=== PATIENT | female | born 1955 | race Caucasian/White ===

== ENCOUNTER 2019-04-02 20:29 | Observation (INO) | payer OTHER ==
[2019-04-02] MEDS ORDERED: MORPHINE SULFATE 4 MG INJ IV ONE ×2 (20:40→23:53)
[2019-04-02] MEDS ORDERED: Zofran 4 MG/2 ML VIAL IV ONE (20:40)
[2019-04-02] MEDS ORDERED: Sodium Chloride 0.9% 1000 ML 1,000 ML IV STA (20:40)
--- NOTE | 2019-04-02 20:44 | ERPHSYRPT ---
- History of Present Illness Time Seen by Provider: 04/02/19 20:41 Historian: patient Exam Limitations: no limitations Physician History: 63-year-old white female with history of degenerative disc disease, arthritis Arrives with periumbilical abdominal pain nausea vomiting symptoms since this morning. Past medical history includes degenerative disc disease, arthritis past surgical history includes ear surgery and hysterectomy Social history patient denies tobacco alcohol or illicit drug use Timing/Duration: today Activities at Onset: none Quality: aching, cramping Abdominal Pain Onset Location: periumbilical Pain Radiation: no radiation Severity of Pain-Max: moderate Severity of Pain-Current: moderate Modifying Factors: Improves With: nothing Associated Symptoms: nausea, vomiting, No back, No chest pain, No diaphoresis, No diarrhea, No fever/chills, No fatigue, No headache, No heartburn, No loss of appetite, No neck pain, No rash, No shortness of breath, No syncope Previous symptoms: no prior history Allergies/Adverse Reactions: No Known Drug Allergies Allergy (Verified 04/02/19 20:43) Home Medications: Duloxetine HCl 60 mg PO DAILY 04/02/19 [History] Gabapentin 300 mg PO TID 04/02/19 [History] Hx Influenza Vaccination/Date Given: (given fall 2010) - Review of Systems Constitutional: No Fever, No Chills Eyes: No Symptoms Ears, Nose, & Throat: No Symptoms Respiratory: No Cough, No Dyspnea Cardiac: No Chest Pain, No Edema, No Syncope Abdominal/Gastrointestinal: Abdominal Pain, Nausea, Vomiting, No Diarrhea, No Constipation, No Hematemesis, No Hematochezia, No Melena, No Dysphagia, No Appetite Changes Genitourinary Symptoms: No Dysuria Musculoskeletal: No Back Pain, No Neck Pain Skin: No Rash Neurological: No Dizziness, No Focal Weakness, No Sensory Changes Psychological: No Symptoms Endocrine: No Symptoms All Other Systems: Reviewed and Negative - Past Medical History Pertinent Past Medical History: No Neurological History: No Pertinent History ENT History: No Pertinent History Cardiac History: No Pertinent History Respiratory History: No Pertinent History Endocrine Medical History: No Pertinent History Musculoskeletal History: Degenerative Disk Disease, Osteoarthritis GI Medical History: No Pertinent History History: No Pertinent History Psycho-Social History: No Pertinent History Female Reproductive Disorders: Other Other Medical History: HYSTERECTOMY, HX OF SURGERY FOR REPAIR OF EAR BONES - Past Surgical History Past Surgical History: Yes Neuro Surgical History: No Pertinent History Cardiac: No Pertinent History Respiratory: No Pertinent History Gastrointestinal: No Pertinent History Genitourinary: No Pertinent History Musculoskeletal: No Pertinent History Female Surgical History: Hysterectomy Other Surgical History: right ear surgery - Social History Drug Use: none - Nursing Vital Signs Nursing Vital Signs: Initial Vital Signs Pulse Rate 82 04/02/19 20:32 Respiratory Rate 18 04/02/19 20:32 Blood Pressure 155/90 04/02/19 20:32 O2 Sat by Pulse Oximetry 96 04/02/19 20:32 Pain Scale Pain Intensity 8 - Physical Exam General Appearance: moderate distress, alert Eye Exam: PERRL/EOMI, eyes nml inspection Ears, Nose, Throat Exam: normal ENT inspection, pharynx normal, moist mucous membranes Neck Exam: normal inspection, non-tender, supple, full range of motion Respiratory Exam: normal breath sounds, lungs clear, No respiratory distress Cardiovascular Exam: regular rate/rhythm, normal heart sounds, capillary refill <2 sec Gastrointestinal/Abdomen Exam: soft, normal bowel sounds, tenderness ( periumbilical tenderness) Back Exam: normal inspection, normal range of motion, No CVA tenderness, No vertebral tenderness Extremity Exam: normal inspection, normal range of motion, pelvis stable Neurologic Exam: alert, oriented x 3, cooperative, web marketing strategist II-XII nml as tested, normal mood/affect, nml cerebellar function, sensation nml, No motor deficits Skin Exam: normal color, warm, dry SpO2 Interpretation: normal (97%) - Course Nursing assessment & vital signs reviewed: Yes - CT Exams Abdomen/Pelvis CT Interpretation: Tele-radiologist Report (CT abdomen and pelvis with contrast : Impression 1 dilated small bowel with relative change in caliber a long segment of distal ileum with questionable mucosal thickening. Could represent enteritis and/or partial obstruction 2. There is also central mesenteric haziness which can be seen with mesenteric panniculitis. 3.. Umbilical fat containing hernia with stranding and minimal fluid.) Ordered Tests: Active Orders 24 hr Category Date Time Status EKG-ER Only STAT Care 04/02/19 20:40 Active IV Insertion STAT Care 04/02/19 20:40 Active ABDOMEN AND PELVIS W CONTRAST [CT] Stat Exams 04/02/19 21:14 Taken AMYLASE Stat Lab 04/02/19 20:48 Completed CBC W DIFF Stat Lab 04/02/19 20:48 Completed CMP Stat Lab 04/02/19 20:48 Completed CULTURE,URINE Stat Lab 04/02/19 23:18 Received LIPASE Stat Lab 04/02/19 20:48 Completed TROPONIN Q3H Lab 04/02/19 20:48 Completed TROPONIN Q3H Lab 04/02/19 23:45 Ordered TROPONIN Q3H Lab 04/03/19 02:45 Ordered TROPONIN Q3H Lab 04/03/19 05:45 Ordered TROPONIN Q3H Lab 04/03/19 08:45 Ordered UA W/RFX UR CULTURE Stat Lab 04/02/19 23:18 Completed Urine Triage Profile Stat Lab 04/02/19 22:23 Completed Medication Summary Discontinued Medications Generic Name Dose Route Start Last Admin Trade Name Freq PRN Reason Stop Dose Admin Sodium Chloride 1,000 mls @ 999 mls/hr 04/02/19 20:40 04/02/19 21:08 Sodium Chloride 0.9% 1000 Ml IV 04/02/19 21:40 999 mls/hr .Q1H1M STA Administration Sodium Chloride Confirm 04/02/19 20:54 Sodium Chloride 0.9% 1000 Ml Administered 04/02/19 20:55 Dose 1,000 mls @ ud .ROUTE .STK-MED ONE Morphine Sulfate 4 mg 04/02/19 20:40 04/02/19 21:07 Morphine Sulfate 4 Mg Inj IV 04/02/19 20:41 4 mg STAT ONE Administration Morphine Sulfate Confirm 04/02/19 20:54 Morphine Sulfate 4 Mg Inj Administered 04/02/19 20:55 Dose 4 mg .ROUTE .STK-MED ONE Morphine Sulfate 4 mg 04/02/19 23:53 Morphine Sulfate 4 Mg Inj IV 04/02/19 23:54 STAT ONE Ondansetron HCl 4 mg 04/02/19 20:40 04/02/19 21:08 Zofran 4 Mg/2 Ml Vial IV 04/02/19 20:41 4 mg STAT ONE Administration Ondansetron HCl Confirm 04/02/19 20:54 Zofran 4 Mg/2 Ml Vial Administered 04/02/19 20:55 Dose 4 mg .ROUTE .STK-MED ONE Lab/Rad Data: Laboratory Result Diagrams 04/02/19 20:48 04/02/19 20:48 Laboratory Results 04/02/19 04/02/19 04/02/19 Range/Units 23:18 22:23 20:48 WBC (4.0-10.5) K/mm3 RBC (4.1-5.4) M/mm3 Hgb (12.0-16.0) gm/dl Hct (35-47) % MCV (78-100) fl MCH (26-32) pg MCHC (32-36) g/dl RDW (11.5-14.0) % Plt Count (150-450) K/mm3 MPV (6-9.5) fl Gran % (36.0-66.0) % Eos # (Auto) (0-0.5) Absolute Lymphs (auto) (1.0-4.6) Absolute Monos (auto) (0.0-1.3) Lymphocytes % (24.0-44.0) % Monocytes % (0.0-12.0) % Eosinophils % (0.00-5.0) % Basophils % (0.0-0.4) % Absolute Granulocytes (1.4-6.9) Basophils # (0-0.4) Sodium (137-145) mmol/L Potassium (3.5-5.1) mmol/L Chloride (98-107) mmol/L Carbon Dioxide (22-30) mmol/L Anion Gap (5-15) MEQ/L BUN (7-17) mg/dL Creatinine (0.52-1.04) mg/dL Estimated GFR ML/MIN Glucose (74-106) mg/dL Calcium (8.4-10.2) mg/dL Total Bilirubin (0.2-1.3) mg/dL AST (14-36) U/L ALT (0-35) U/L Alkaline Phosphatase (38-126) U/L Troponin I < 0.012 (0.000-0.034) ng/mL Serum Total Protein (6.3-8.2) g/dL Albumin (3.5-5.0) g/dL Amylase (30-110) U/L Lipase (23-300) U/L Urine Color YELLOW (YELLOW) Urine Appearance CLEAR (CLEAR) Urine pH 6.0 (5-6) Ur Specific [place] 1.045 (1.005-1.025) Urine Protein NEGATIVE (Negative) Urine Ketones NEGATIVE (NEGATIVE) Urine Blood NEGATIVE (0-5) Abhinav/ul Urine Nitrite POSITIVE (NEGATIVE) Urine Bilirubin NEGATIVE (NEGATIVE) Urine Urobilinogen NORMAL (0-1) mg/dL Ur Leukocyte Esterase NEGATIVE (NEGATIVE) Urine WBC (Auto) 3-5 (0-5) /HPF Urine RBC (Auto) NONE SEEN (0-2) /HPF U Epithel Cells (Auto) NONE (FEW) /HPF Urine Bacteria (Auto) MODERATE (NEGATIVE) /HPF Urine Mucus (Auto) SLIGHT (NEGATIVE) /HPF Urine Culture Reflexed YES (NO) Urine Glucose NEGATIVE (NEGATIVE) mg/dL Urine Opiates Level POSITIVE (NEGATIVE) Ur Methadone NEGATIVE (NEGATIVE) Urine Barbiturates NEGATIVE (NEGATIVE) Ur Phencyclidine (PCP) NEGATIVE (NEGATIVE) Urine Amphetamine NEGATIVE (NEGATIVE) U Benzodiazepine Level NEGATIVE (NEGATIVE) Urine Cocaine NEGATIVE (NEGATIVE) Urine Marijuana (THC) NEGATIVE (NEGATIVE) 04/02/19 04/02/19 Range/Units 20:48 20:48 WBC 11.1 H (4.0-10.5) K/mm3 RBC 5.12 (4.1-5.4) M/mm3 Hgb 15.3 (12.0-16.0) gm/dl Hct 45.8 (35-47) % MCV 89.5 (78-100) fl MCH 29.9 (26-32) pg MCHC 33.4 (32-36) g/dl RDW 13.2 (11.5-14.0) % Plt Count 307 (150-450) K/mm3 MPV 10.0 H (6-9.5) fl Gran % 78.4 H (36.0-66.0) % Eos # (Auto) 0.15 (0-0.5) Absolute Lymphs (auto) 1.55 (1.0-4.6) Absolute Monos (auto) 0.67 (0.0-1.3) Lymphocytes % 13.9 L (24.0-44.0) % Monocytes % 6.0 (0.0-12.0) % Eosinophils % 1.3 (0.00-5.0) % Basophils % 0.4 (0.0-0.4) % Absolute Granulocytes 8.71 H (1.4-6.9) Basophils # 0.04 (0-0.4) Sodium 140 (137-145) mmol/L Potassium 4.1 (3.5-5.1) mmol/L Chloride 104 (98-107) mmol/L Carbon Dioxide 23 (22-30) mmol/L Anion Gap 16.8 H (5-15) MEQ/L BUN 14 (7-17) mg/dL Creatinine 0.59 (0.52-1.04) mg/dL Estimated GFR > 60.0 ML/MIN Glucose 130 H (74-106) mg/dL Calcium 9.7 (8.4-10.2) mg/dL Total Bilirubin 0.40 (0.2-1.3) mg/dL AST 24 (14-36) U/L ALT 40 H (0-35) U/L Alkaline Phosphatase 89 (38-126) U/L Troponin I (0.000-0.034) ng/mL Serum Total Protein 8.0 (6.3-8.2) g/dL Albumin 4.8 (3.5-5.0) g/dL Amylase 53 (30-110) U/L Lipase 92 (23-300) U/L Urine Color (YELLOW) Urine Appearance (CLEAR) Urine pH (5-6) Ur Specific [place] (1.005-1.025) Urine Protein (Negative) Urine Ketones (NEGATIVE) Urine Blood (0-5) Abhinav/ul Urine Nitrite (NEGATIVE) Urine Bilirubin (NEGATIVE) Urine Urobilinogen (0-1) mg/dL Ur Leukocyte Esterase (NEGATIVE) Urine WBC (Auto) (0-5) /HPF Urine RBC (Auto) (0-2) /HPF U Epithel Cells (Auto) (FEW) /HPF Urine Bacteria (Auto) (NEGATIVE) /HPF Urine Mucus (Auto) (NEGATIVE) /HPF Urine Culture Reflexed (NO) Urine Glucose (NEGATIVE) mg/dL Urine Opiates Level (NEGATIVE) Ur Methadone (NEGATIVE) Urine Barbiturates (NEGATIVE) Ur Phencyclidine (PCP) (NEGATIVE) Urine Amphetamine (NEGATIVE) U Benzodiazepine Level (NEGATIVE) Urine Cocaine (NEGATIVE) Urine Marijuana (THC) (NEGATIVE) - Progress Progress: improved Progress Note: 04/02/19 23:33 63-year-old white female arrives with complaint of periumbilical abdominal pain symptoms since this morning. Patient arrives in moderate distress she had vomiting on arrival Patient with stable vitals patient with white count 11.1 hemoglobin 15.3 hematocrit 45.8 platelets 307 Chemistry sodium 140 potassium 4.1 chloride 104 bicarbonate 23 BUN 14 creatinine 0.99 glucose 1:30 amylase and lipase are within normal limits patient with CT of the abdomen remarkable for 1. Dilated small bowel with relative change in caliber along a segment of the distal ileum with questionable mucosal thickening. Could represent enteritis and/or partial obstruction 2. Central mesenteric haziness which could be seen with mesenteric panniculitis 3. Periumbilical fat-containing hernia with stranding and minimal fluid Patient is given IV morphine IV Zofran IV normal saline she is better however she now states her pain is returning. Will discuss case with Dr. zavala who is catering convention services manager for Dr. Acuna. 04/02/19 23:58 The patient's case is discussed with Dr. Henderson, Will admit patient with the diagnosis of periumbilical abdominal pain. Will place patient on ice chips, provide IV fluids provide IV morphine Zofran. I have discussed the case with Dr. Shearer as well. Will obtain surgical consult. - Departure Departure Disposition: Observation Clinical Impression: Abdominal pain Qualifiers: Abdominal location: periumbilical Qualified Code(s): R10.33 - Periumbilical pain Vomiting Qualifiers: Vomiting type: unspecified Vomiting Intractability: non-intractable Nausea presence: with nausea Qualified Code(s): R11.2 - Nausea with vomiting, unspecified Condition: Fair Critical Care Time: No Referrals: STEPHANIE ACUNA [Primary Care Provider] -
[2019-04-02 20:51] LABS: BASOPHIL % 0.4 % (0.0-0.4); Basophil (Absolute #) 0.04 (0-0.4); Eosinophil % 1.3 % (0.00-5.0); Eosinophil (Absolute #) 0.15 (0-0.5); Granulocyte Absolute (ANC) 8.71 (1.4-6.9); Granulocytes % 78.4 % (36.0-66.0); Hematocrit 45.8 % (35-47); Hemoglobin 15.3 gm/dl (12.0-16.0); Lymphocyte (Absolute #) 1.55 (1.0-4.6); Lymphocytes % 13.9 % (24.0-44.0); Mean Cell Volume 89.5 fl (78-100); Mean Corpuscular Hemoglobin 29.9 pg (26-32); Mean Corpuscular Hgb Concent. 33.4 g/dl (32-36); Monocyte (Absolute #) 0.67 (0.0-1.3); Platelet Count 307 K/mm3 (150-450); Red Blood Count 5.12 M/mm3 (4.1-5.4); Red Cell Distribution Width 13.2 % (11.5-14.0); White Blood Count 11.1 K/mm3 (4.0-10.5)
[2019-04-02] MEDS ORDERED: Sodium Chloride 0.9% 1000 ML 1,000 ML ONE (20:54)
[2019-04-02] MEDS ORDERED: MORPHINE SULFATE 4 MG INJ ONE (20:54)
[2019-04-02] MEDS ORDERED: Zofran 4 MG/2 ML VIAL ONE (20:54)
[2019-04-02 21:03] LABS: ALBUMIN 4.8 g/dL (3.5-5.0); ALKALINE PHOSPHATASE 89 U/L (38-126); AMYLASE 53 U/L (30-110); ANION GAP 16.8 MEQ/L (5-15); BLOOD UREA NITROGEN 14 mg/dL (7-17); CHLORIDE 104 mmol/L (98-107); Calcium 9.7 mg/dL (8.4-10.2); Carbon Dioxide 23 mmol/L (22-30); Creatinine 1 0.59 mg/dL (0.52-1.04); Glucose 130 mg/dL (74-106); LIPASE 92 U/L (23-300); Potassium 4.1 mmol/L (3.5-5.1); SGOT/AST 24 U/L (14-36); SGPT/ALT 40 U/L (0-35); SODIUM 140 mmol/L (137-145)
[2019-04-02 23:17] LABS: Amphetamine,Urine NEGATIVE (NEGATIVE); Barbiturate,Urine NEGATIVE (NEGATIVE); Benzodiazepine,Urine NEGATIVE (NEGATIVE); Cocaine,Urine NEGATIVE (NEGATIVE); Methadone,Urine NEGATIVE (NEGATIVE); Opiate,Urine POSITIVE (NEGATIVE); PCP,Urine NEGATIVE (NEGATIVE); THC,Urine NEGATIVE (NEGATIVE)
[2019-04-02 23:23] LABS: Appearance CLEAR (CLEAR); Bilirubin NEGATIVE (NEGATIVE); Blood NEGATIVE Ery/ul (0-5); Glucose NEGATIVE (NEGATIVE); Ketones NEGATIVE (NEGATIVE); Leukocyte Esterase NEGATIVE (NEGATIVE); Nitrite POSITIVE (NEGATIVE); Protein,Urine Dip NEGATIVE (Negative); Specific Gravity 1.045 (1.005-1.025); Urobilinogen NORMAL mg/dL (0-1)
[2019-04-02 23:24] LABS: Bacteria MODERATE /HPF (NEGATIVE); Mucus SLIGHT /HPF (NEGATIVE); RBC NONE SEEN /HPF (0-2)
[2019-04-03] MEDS ORDERED: MORPHINE SULFATE 4 MG INJ ONE (00:03)
[2019-04-03] MEDS ORDERED: Zofran 4 MG/2 ML VIAL IV PRN (00:54)
[2019-04-03] MEDS ORDERED: MORPHINE SULFATE 4 MG INJ IV PRN (00:54)
[2019-04-03] MEDS ORDERED: Sodium Chloride 0.9% 1000 ML 1,000 ML IV SCH (00:54)
[2019-04-03 06:03] LABS: BASOPHIL % 0.2 % (0.0-0.4); Basophil (Absolute #) 0.02 (0-0.4); Eosinophil % 1.3 % (0.00-5.0); Eosinophil (Absolute #) 0.14 (0-0.5); Granulocyte Absolute (ANC) 8.82 (1.4-6.9); Granulocytes % 81.4 % (36.0-66.0); Hematocrit 42.6 % (35-47); Hemoglobin 13.8 gm/dl (12.0-16.0); Lymphocyte (Absolute #) 1.15 (1.0-4.6); Lymphocytes % 10.6 % (24.0-44.0); Mean Cell Volume 91.8 fl (78-100); Mean Corpuscular Hemoglobin 29.7 pg (26-32); Mean Corpuscular Hgb Concent. 32.4 g/dl (32-36); Mean Platelet Volume 9.9 fl (6-9.5); Monocytes % 6.5 % (0.0-12.0); Platelet Count 277 K/mm3 (150-450); Red Blood Count 4.64 M/mm3 (4.1-5.4); Red Cell Distribution Width 13.2 % (11.5-14.0); White Blood Count 10.8 K/mm3 (4.0-10.5)
[2019-04-03 06:24] LABS: ALBUMIN 4.2 g/dL (3.5-5.0); ALKALINE PHOSPHATASE 70 U/L (38-126); ANION GAP 13.7 MEQ/L (5-15); BLOOD UREA NITROGEN 12 mg/dL (7-17); CHLORIDE 106 mmol/L (98-107); Calcium 8.9 mg/dL (8.4-10.2); Carbon Dioxide 26 mmol/L (22-30); Glucose 124 mg/dL (74-106); SGOT/AST 20 U/L (14-36); SGPT/ALT 33 U/L (0-35); SODIUM 141 mmol/L (137-145); Total Protein 7.1 g/dL (6.3-8.2)
--- NOTE | 2019-04-03 07:57 | XRAY ---
Indication: Midabdomen pain. Nausea, vomiting, diarrhea. Multiple contiguous axial images obtained through the abdomen and pelvis using 80 cc Isovue 370 contrast only. Comparison: None Lung bases demonstrates mild bibasilar dependent atelectasis. No infiltrate or effusion. Heart is not enlarged. Small hiatal hernia. Noncontrasted stomach and bowel loops appear nonobstructed. Mild uniformly fluid distended small bowel loops with fluid leveling, ileus versus enteritis. Normal appendix. Descending and sigmoid diverticulosis. No free fluid/air. Midabdomen tiny mesenteric nodes with stranding favoring adenitis. Multiple gallstones, largest 1.8 cm. Bilateral parapelvic/cortical renal cysts. Previous hysterectomy. Remaining liver, pancreas, spleen, adrenal glands, ureters, and bladder appear unremarkable for noncontrast exam. Osseous structures intact with minimal degenerative changes throughout the spine. There are 2 moderate sized periumbilical fatty hernia with minimal stranding/fluid. Impression: 1. Fluid distended small bowel loops with fluid leveling, ileus versus enteritis. 2. Tiny midabdomen mesenteric nodes with stranding favoring mesenteric adenitis. 3. Cholelithiasis without cholecystitis. 4. Fatty periumbilical hernias. 5. Incidental small hiatal hernia, renal cysts, and colonic diverticulosis. Comment: Preliminary interpretation was made by [facility]. No critical discrepancy. CTDI 27.81
[2019-04-03 12:08] VITALS: BP 111/59; PULSE 85; O2SAT 94
[2019-04-03] MEDS ORDERED: ROCEPHIN 1 Gm-D5w 50 ml Bag** 1 G/50 ML IVPB IV ONE (13:50)
--- NOTE | 2019-04-03 14:16 | PCM.SSS ---
History of Present Illness - Chief Complaint Chief Complaint: Periumbilical abdominal pain History of Present Illness: is a 63 year old female.Who presented to ER yesterday with nausea vomiting and periumbilical abdominal pain but no fever. States it started earlier in the morning,had been to the movies the night before and ate alot of popcorn and pop. After Iv fluids overnight is feeling better ,was given bland diet this morning and denies abdominal pain or nausea following this meal. She still has her gallbladder and appendix. I was present for Surgery consult this morning with Dr Ervin Shearer who discussed doing a colonoscopy (see CT Abd re thickened illeus). Patient states she had a colonoscopy about 4 years ago and thinks she had "pockets",not sure about polyps. - Review of Systems Ears, Nose, & Throat: No Symptoms Respiratory: No Symptoms Cardiac: No Symptoms Abdominal/Gastrointestinal: Abdominal Pain, Nausea, Vomiting, Other Genitourinary Symptoms: No Symptoms Musculoskeletal: Arthralgias (chronic), Other Skin: No Symptoms Medications & Allergies Home Medications: Home Medication List Duloxetine HCl 60 mg PO DAILY 04/02/19 [History Confirmed 04/02/19] Gabapentin 300 mg PO TID 04/02/19 [History Confirmed 04/02/19] Cefdinir 300 mg PO BID 7 Days #14 capsule 04/03/19 [Rx] Allergies/Adverse Reactions: Allergies Allergy/AdvReac Type Severity Reaction Status Date / Time No Known Drug Allergies Allergy Verified 04/02/19 20:43 - Past Medical History Past Medical History: No Neurological History: No Pertinent History ENT History: No Pertinent History Cardiac History: No Pertinent History Respiratory History: No Pertinent History Endocrine Medical History: No Pertinent History Musculoskelatal History: Degenerative Disk Disease, Osteoarthritis GI Medical History: No Pertinent History History: No Pertinent History Pyscho-Social History: No Pertinent History Reproductive Disorders: Other Comment: HYSTERECTOMY, HX OF SURGERY FOR REPAIR OF EAR BONES - Female History Are you now?: No - Past Surgical History Past Surgical History: Yes Neuro Surgical History: No Pertinent History Cardiac History: No Pertinent History Respiratory Surgery: No Pertinent History GI Surgical History: No Pertinent History Genitourinary Surgical Hx: No Pertinent History Musculskeletal Surgical Hx: No Pertinent History Female Surgical History: Hysterectomy Other Surgical History: right ear surgery - Social History Smoking Status: Never smoker Exposure to second hand smoke: No Alcohol: Rarely Drug Use: none - Physical Exam Vital Signs: Vital Signs - 24 hr Temp Pulse Pulse Resp BP Pulse Ox 04/03/19 12:06 98.1 F 85 16 111/59 94 L 04/03/19 07:56 98.4 F 106 H 17 134/75 97 04/03/19 02:02 98.4 F 90 18 128/81 97 04/03/19 01:20 93 H 18 133/78 96 04/03/19 00:54 97 04/03/19 00:15 89 18 129/73 97 04/02/19 23:40 87 18 132/82 96 04/02/19 22:30 74 18 112/73 98 04/02/19 20:32 83 82 18 155/90 96 Oxygen-Last 24 hours O2 Percentage 2 Liters = 28% Oxygen Flowrate (L/min)-RT 2 General Appearance: no apparent distress Neurologic Exam: alert, oriented x 3, cooperative Respiratory Exam: normal breath sounds Cardiovascular Exam: regular rate/rhythm Gastrointestinal/Abdomen Exam: soft, tenderness (suprapubic. no guarding no rebound), other Pelvic Exam: not done, other (s/p hysterectomy) Rectal Exam: deferred Back Exam: other (no CVA tenderness) Extremity Exam: normal inspection, normal range of motion, pelvis stable Skin Exam: normal color, warm, dry Results - Labs Lab/Micro Results: Lab Results-Last 24 Hours 04/02/19 04/02/19 04/02/19 Range/Units 00:15 20:48 20:48 WBC 11.1 H (4.0-10.5) K/mm3 RBC 5.12 (4.1-5.4) M/mm3 Hgb 15.3 (12.0-16.0) gm/dl Hct 45.8 (35-47) % MCV 89.5 (78-100) fl MCH 29.9 (26-32) pg MCHC 33.4 (32-36) g/dl RDW 13.2 (11.5-14.0) % Plt Count 307 (150-450) K/mm3 MPV 10.0 H (6-9.5) fl Gran % 78.4 H (36.0-66.0) % Eos # (Auto) 0.15 (0-0.5) Absolute Lymphs (auto) 1.55 (1.0-4.6) Absolute Monos (auto) 0.67 (0.0-1.3) Lymphocytes % 13.9 L (24.0-44.0) % Monocytes % 6.0 (0.0-12.0) % Eosinophils % 1.3 (0.00-5.0) % Basophils % 0.4 (0.0-0.4) % Absolute Granulocytes 8.71 H (1.4-6.9) Basophils # 0.04 (0-0.4) Sodium 140 (137-145) mmol/L Potassium 4.1 (3.5-5.1) mmol/L Chloride 104 (98-107) mmol/L Carbon Dioxide 23 (22-30) mmol/L Anion Gap 16.8 H (5-15) MEQ/L BUN 14 (7-17) mg/dL Creatinine 0.59 (0.52-1.04) mg/dL Estimated GFR > 60.0 ML/MIN Glucose 130 H (74-106) mg/dL Calcium 9.7 (8.4-10.2) mg/dL Total Bilirubin 0.40 (0.2-1.3) mg/dL AST 24 (14-36) U/L ALT 40 H (0-35) U/L Alkaline Phosphatase 89 (38-126) U/L Troponin I < 0.012 (0.000-0.034) ng/mL Serum Total Protein 8.0 (6.3-8.2) g/dL Albumin 4.8 (3.5-5.0) g/dL Amylase 53 (30-110) U/L Lipase 92 (23-300) U/L Urine Color (YELLOW) Urine Appearance (CLEAR) Urine pH (5-6) Ur Specific [place] (1.005-1.025) Urine Protein (Negative) Urine Ketones (NEGATIVE) Urine Blood (0-5) Abhinav/ul Urine Nitrite (NEGATIVE) Urine Bilirubin (NEGATIVE) Urine Urobilinogen (0-1) mg/dL Ur Leukocyte Esterase (NEGATIVE) Urine WBC (Auto) (0-5) /HPF Urine RBC (Auto) (0-2) /HPF U Epithel Cells (Auto) (FEW) /HPF Urine Bacteria (Auto) (NEGATIVE) /HPF Urine Mucus (Auto) (NEGATIVE) /HPF Urine Culture Reflexed (NO) Urine Glucose (NEGATIVE) mg/dL Urine Opiates Level (NEGATIVE) Ur Methadone (NEGATIVE) Urine Barbiturates (NEGATIVE) Ur Phencyclidine (PCP) (NEGATIVE) Urine Amphetamine (NEGATIVE) U Benzodiazepine Level (NEGATIVE) Urine Cocaine (NEGATIVE) Urine Marijuana (THC) (NEGATIVE) 04/02/19 04/02/19 04/02/19 Range/Units 20:48 22:23 23:18 WBC (4.0-10.5) K/mm3 RBC (4.1-5.4) M/mm3 Hgb (12.0-16.0) gm/dl Hct (35-47) % MCV (78-100) fl MCH (26-32) pg MCHC (32-36) g/dl RDW (11.5-14.0) % Plt Count (150-450) K/mm3 MPV (6-9.5) fl Gran % (36.0-66.0) % Eos # (Auto) (0-0.5) Absolute Lymphs (auto) (1.0-4.6) Absolute Monos (auto) (0.0-1.3) Lymphocytes % (24.0-44.0) % Monocytes % (0.0-12.0) % Eosinophils % (0.00-5.0) % Basophils % (0.0-0.4) % Absolute Granulocytes (1.4-6.9) Basophils # (0-0.4) Sodium (137-145) mmol/L Potassium (3.5-5.1) mmol/L Chloride (98-107) mmol/L Carbon Dioxide (22-30) mmol/L Anion Gap (5-15) MEQ/L BUN (7-17) mg/dL Creatinine (0.52-1.04) mg/dL Estimated GFR ML/MIN Glucose (74-106) mg/dL Calcium (8.4-10.2) mg/dL Total Bilirubin (0.2-1.3) mg/dL AST (14-36) U/L ALT (0-35) U/L Alkaline Phosphatase (38-126) U/L Troponin I < 0.012 (0.000-0.034) ng/mL Serum Total Protein (6.3-8.2) g/dL Albumin (3.5-5.0) g/dL Amylase (30-110) U/L Lipase (23-300) U/L Urine Color YELLOW (YELLOW) Urine Appearance CLEAR (CLEAR) Urine pH 6.0 (5-6) Ur Specific [place] 1.045 (1.005-1.025) Urine Protein NEGATIVE (Negative) Urine Ketones NEGATIVE (NEGATIVE) Urine Blood NEGATIVE (0-5) Abhinav/ul Urine Nitrite POSITIVE (NEGATIVE) Urine Bilirubin NEGATIVE (NEGATIVE) Urine Urobilinogen NORMAL (0-1) mg/dL Ur Leukocyte Esterase NEGATIVE (NEGATIVE) Urine WBC (Auto) 3-5 (0-5) /HPF Urine RBC (Auto) NONE SEEN (0-2) /HPF U Epithel Cells (Auto) NONE (FEW) /HPF Urine Bacteria (Auto) MODERATE (NEGATIVE) /HPF Urine Mucus (Auto) SLIGHT (NEGATIVE) /HPF Urine Culture Reflexed YES (NO) Urine Glucose NEGATIVE (NEGATIVE) mg/dL Urine Opiates Level POSITIVE (NEGATIVE) Ur Methadone NEGATIVE (NEGATIVE) Urine Barbiturates NEGATIVE (NEGATIVE) Ur Phencyclidine (PCP) NEGATIVE (NEGATIVE) Urine Amphetamine NEGATIVE (NEGATIVE) U Benzodiazepine Level NEGATIVE (NEGATIVE) Urine Cocaine NEGATIVE (NEGATIVE) Urine Marijuana (THC) NEGATIVE (NEGATIVE) 04/03/19 04/03/19 04/03/19 Range/Units 02:44 05:20 05:20 WBC 10.8 H (4.0-10.5) K/mm3 RBC 4.64 (4.1-5.4) M/mm3 Hgb 13.8 (12.0-16.0) gm/dl Hct 42.6 (35-47) % MCV 91.8 (78-100) fl MCH 29.7 (26-32) pg MCHC 32.4 (32-36) g/dl RDW 13.2 (11.5-14.0) % Plt Count 277 (150-450) K/mm3 MPV 9.9 H (6-9.5) fl Gran % 81.4 H (36.0-66.0) % Eos # (Auto) 0.14 (0-0.5) Absolute Lymphs (auto) 1.15 (1.0-4.6) Absolute Monos (auto) 0.70 (0.0-1.3) Lymphocytes % 10.6 L (24.0-44.0) % Monocytes % 6.5 (0.0-12.0) % Eosinophils % 1.3 (0.00-5.0) % Basophils % 0.2 (0.0-0.4) % Absolute Granulocytes 8.82 H (1.4-6.9) Basophils # 0.02 (0-0.4) Sodium (137-145) mmol/L Potassium (3.5-5.1) mmol/L Chloride (98-107) mmol/L Carbon Dioxide (22-30) mmol/L Anion Gap (5-15) MEQ/L BUN (7-17) mg/dL Creatinine (0.52-1.04) mg/dL Estimated GFR ML/MIN Glucose (74-106) mg/dL Calcium (8.4-10.2) mg/dL Total Bilirubin (0.2-1.3) mg/dL AST (14-36) U/L ALT (0-35) U/L Alkaline Phosphatase (38-126) U/L Troponin I < 0.012 < 0.012 (0.000-0.034) ng/mL Serum Total Protein (6.3-8.2) g/dL Albumin (3.5-5.0) g/dL Amylase (30-110) U/L Lipase (23-300) U/L Urine Color (YELLOW) Urine Appearance (CLEAR) Urine pH (5-6) Ur Specific [place] (1.005-1.025) Urine Protein (Negative) Urine Ketones (NEGATIVE) Urine Blood (0-5) Abhinav/ul Urine Nitrite (NEGATIVE) Urine Bilirubin (NEGATIVE) Urine Urobilinogen (0-1) mg/dL Ur Leukocyte Esterase (NEGATIVE) Urine WBC (Auto) (0-5) /HPF Urine RBC (Auto) (0-2) /HPF U Epithel Cells (Auto) (FEW) /HPF Urine Bacteria (Auto) (NEGATIVE) /HPF Urine Mucus (Auto) (NEGATIVE) /HPF Urine Culture Reflexed (NO) Urine Glucose (NEGATIVE) mg/dL Urine Opiates Level (NEGATIVE) Ur Methadone (NEGATIVE) Urine Barbiturates (NEGATIVE) Ur Phencyclidine (PCP) (NEGATIVE) Urine Amphetamine (NEGATIVE) U Benzodiazepine Level (NEGATIVE) Urine Cocaine (NEGATIVE) Urine Marijuana (THC) (NEGATIVE) 05/05/19 05/05/19 Range/Units 05:20 08:40 WBC (4.0-10.5) K/mm3 RBC (4.1-5.4) M/mm3 Hgb (12.0-16.0) gm/dl Hct (35-47) % MCV (78-100) fl MCH (26-32) pg MCHC (32-36) g/dl RDW (11.5-14.0) % Plt Count (150-450) K/mm3 MPV (6-9.5) fl Gran % (36.0-66.0) % Eos # (Auto) (0-0.5) Absolute Lymphs (auto) (1.0-4.6) Absolute Monos (auto) (0.0-1.3) Lymphocytes % (24.0-44.0) % Monocytes % (0.0-12.0) % Eosinophils % (0.00-5.0) % Basophils % (0.0-0.4) % Absolute Granulocytes (1.4-6.9) Basophils # (0-0.4) Sodium 141 (137-145) mmol/L Potassium 4.0 (3.5-5.1) mmol/L Chloride 106 (98-107) mmol/L Carbon Dioxide 26 (22-30) mmol/L Anion Gap 13.7 (5-15) MEQ/L BUN 12 (7-17) mg/dL Creatinine 0.50 L (0.52-1.04) mg/dL Estimated GFR > 60.0 ML/MIN Glucose 124 H (74-106) mg/dL Calcium 8.9 (8.4-10.2) mg/dL Total Bilirubin 0.30 (0.2-1.3) mg/dL AST 20 (14-36) U/L ALT 33 (0-35) U/L Alkaline Phosphatase 70 (38-126) U/L Troponin I < 0.012 (0.000-0.034) ng/mL Serum Total Protein 7.1 (6.3-8.2) g/dL Albumin 4.2 (3.5-5.0) g/dL Amylase (30-110) U/L Lipase (23-300) U/L Urine Color (YELLOW) Urine Appearance (CLEAR) Urine pH (5-6) Ur Specific [place] (1.005-1.025) Urine Protein (Negative) Urine Ketones (NEGATIVE) Urine Blood (0-5) Abhinav/ul Urine Nitrite (NEGATIVE) Urine Bilirubin (NEGATIVE) Urine Urobilinogen (0-1) mg/dL Ur Leukocyte Esterase (NEGATIVE) Urine WBC (Auto) (0-5) /HPF Urine RBC (Auto) (0-2) /HPF U Epithel Cells (Auto) (FEW) /HPF Urine Bacteria (Auto) (NEGATIVE) /HPF Urine Mucus (Auto) (NEGATIVE) /HPF Urine Culture Reflexed (NO) Urine Glucose (NEGATIVE) mg/dL Urine Opiates Level (NEGATIVE) Ur Methadone (NEGATIVE) Urine Barbiturates (NEGATIVE) Ur Phencyclidine (PCP) (NEGATIVE) Urine Amphetamine (NEGATIVE) U Benzodiazepine Level (NEGATIVE) Urine Cocaine (NEGATIVE) Urine Marijuana (THC) (NEGATIVE) - Radiology Impressions Radiology Exams & Impressions: Radiology Procedures Category Date Time Status ABDOMEN AND PELVIS W CONTRAST [CT] Stat Exams 04/02/19 21:14 Completed - Other Procedures and Tests see Vrad report.- dialated small bowel,see complete report. Assessment/Plan (1) Abdominal pain Current Visit: Yes Status: Resolved Qualifiers: Abdominal location: periumbilical Qualified Code(s): R10.33 - Periumbilical pain Code(s): R10.9 - UNSPECIFIED ABDOMINAL PAIN (2) UTI (urinary tract infection) Current Visit: Yes Status: Acute Assessment & Plan: nitrate positive,culture urine is pending. Code(s): N39.0 - URINARY TRACT INFECTION, SITE NOT SPECIFIED Hospital Summary - Hospital Course Hospital Course: discussed in HPI - Vitals & Intake/Output Vital Signs: Vital Signs Temperature 98.1 F 04/03/19 12:06 Pulse Rate 85 04/03/19 12:06 Respiratory Rate 16 04/03/19 12:06 Blood Pressure 111/59 04/03/19 12:06 O2 Sat by Pulse Oximetry 94 L 04/03/19 12:06 Oxygen-Last Documented O2 Percentage 2 Liters = 28% Intake & Output: Intake & Output 04/01/19 04/02/19 04/03/19 04/04/19 11:59 11:59 11:59 11:59 Output Total 300 Balance -300 Weight 92.8 kg - Lab Result Diagrams: 04/03/19 05:20 04/03/19 05:20 Lab Results-Last 24 Hrs: Lab Results-Last 24 Hours 04/02/19 04/02/19 04/02/19 Range/Units 00:15 20:48 20:48 WBC 11.1 H (4.0-10.5) K/mm3 RBC 5.12 (4.1-5.4) M/mm3 Hgb 15.3 (12.0-16.0) gm/dl Hct 45.8 (35-47) % MCV 89.5 (78-100) fl MCH 29.9 (26-32) pg MCHC 33.4 (32-36) g/dl RDW 13.2 (11.5-14.0) % Plt Count 307 (150-450) K/mm3 MPV 10.0 H (6-9.5) fl Gran % 78.4 H (36.0-66.0) % Eos # (Auto) 0.15 (0-0.5) Absolute Lymphs (auto) 1.55 (1.0-4.6) Absolute Monos (auto) 0.67 (0.0-1.3) Lymphocytes % 13.9 L (24.0-44.0) % Monocytes % 6.0 (0.0-12.0) % Eosinophils % 1.3 (0.00-5.0) % Basophils % 0.4 (0.0-0.4) % Absolute Granulocytes 8.71 H (1.4-6.9) Basophils # 0.04 (0-0.4) Sodium 140 (137-145) mmol/L Potassium 4.1 (3.5-5.1) mmol/L Chloride 104 (98-107) mmol/L Carbon Dioxide 23 (22-30) mmol/L Anion Gap 16.8 H (5-15) MEQ/L BUN 14 (7-17) mg/dL Creatinine 0.59 (0.52-1.04) mg/dL Estimated GFR > 60.0 ML/MIN Glucose 130 H (74-106) mg/dL Calcium 9.7 (8.4-10.2) mg/dL Total Bilirubin 0.40 (0.2-1.3) mg/dL AST 24 (14-36) U/L ALT 40 H (0-35) U/L Alkaline Phosphatase 89 (38-126) U/L Troponin I < 0.012 (0.000-0.034) ng/mL Serum Total Protein 8.0 (6.3-8.2) g/dL Albumin 4.8 (3.5-5.0) g/dL Amylase 53 (30-110) U/L Lipase 92 (23-300) U/L Urine Color (YELLOW) Urine Appearance (CLEAR) Urine pH (5-6) Ur Specific [place] (1.005-1.025) Urine Protein (Negative) Urine Ketones (NEGATIVE) Urine Blood (0-5) Abhinav/ul Urine Nitrite (NEGATIVE) Urine Bilirubin (NEGATIVE) Urine Urobilinogen (0-1) mg/dL Ur Leukocyte Esterase (NEGATIVE) Urine WBC (Auto) (0-5) /HPF Urine RBC (Auto) (0-2) /HPF U Epithel Cells (Auto) (FEW) /HPF Urine Bacteria (Auto) (NEGATIVE) /HPF Urine Mucus (Auto) (NEGATIVE) /HPF Urine Culture Reflexed (NO) Urine Glucose (NEGATIVE) mg/dL Urine Opiates Level (NEGATIVE) Ur Methadone (NEGATIVE) Urine Barbiturates (NEGATIVE) Ur Phencyclidine (PCP) (NEGATIVE) Urine Amphetamine (NEGATIVE) U Benzodiazepine Level (NEGATIVE) Urine Cocaine (NEGATIVE) Urine Marijuana (THC) (NEGATIVE) 04/02/19 04/02/19 04/02/19 Range/Units 20:48 22:23 23:18 WBC (4.0-10.5) K/mm3 RBC (4.1-5.4) M/mm3 Hgb (12.0-16.0) gm/dl Hct (35-47) % MCV (78-100) fl MCH (26-32) pg MCHC (32-36) g/dl RDW (11.5-14.0) % Plt Count (150-450) K/mm3 MPV (6-9.5) fl Gran % (36.0-66.0) % Eos # (Auto) (0-0.5) Absolute Lymphs (auto) (1.0-4.6) Absolute Monos (auto) (0.0-1.3) Lymphocytes % (24.0-44.0) % Monocytes % (0.0-12.0) % Eosinophils % (0.00-5.0) % Basophils % (0.0-0.4) % Absolute Granulocytes (1.4-6.9) Basophils # (0-0.4) Sodium (137-145) mmol/L Potassium (3.5-5.1) mmol/L Chloride (98-107) mmol/L Carbon Dioxide (22-30) mmol/L Anion Gap (5-15) MEQ/L BUN (7-17) mg/dL Creatinine (0.52-1.04) mg/dL Estimated GFR ML/MIN Glucose (74-106) mg/dL Calcium (8.4-10.2) mg/dL Total Bilirubin (0.2-1.3) mg/dL AST (14-36) U/L ALT (0-35) U/L Alkaline Phosphatase (38-126) U/L Troponin I < 0.012 (0.000-0.034) ng/mL Serum Total Protein (6.3-8.2) g/dL Albumin (3.5-5.0) g/dL Amylase (30-110) U/L Lipase (23-300) U/L Urine Color YELLOW (YELLOW) Urine Appearance CLEAR (CLEAR) Urine pH 6.0 (5-6) Ur Specific [place] 1.045 (1.005-1.025) Urine Protein NEGATIVE (Negative) Urine Ketones NEGATIVE (NEGATIVE) Urine Blood NEGATIVE (0-5) Abhinav/ul Urine Nitrite POSITIVE (NEGATIVE) Urine Bilirubin NEGATIVE (NEGATIVE) Urine Urobilinogen NORMAL (0-1) mg/dL Ur Leukocyte Esterase NEGATIVE (NEGATIVE) Urine WBC (Auto) 3-5 (0-5) /HPF Urine RBC (Auto) NONE SEEN (0-2) /HPF U Epithel Cells (Auto) NONE (FEW) /HPF Urine Bacteria (Auto) MODERATE (NEGATIVE) /HPF Urine Mucus (Auto) SLIGHT (NEGATIVE) /HPF Urine Culture Reflexed YES (NO) Urine Glucose NEGATIVE (NEGATIVE) mg/dL Urine Opiates Level POSITIVE (NEGATIVE) Ur Methadone NEGATIVE (NEGATIVE) Urine Barbiturates NEGATIVE (NEGATIVE) Ur Phencyclidine (PCP) NEGATIVE (NEGATIVE) Urine Amphetamine NEGATIVE (NEGATIVE) U Benzodiazepine Level NEGATIVE (NEGATIVE) Urine Cocaine NEGATIVE (NEGATIVE) Urine Marijuana (THC) NEGATIVE (NEGATIVE) 04/03/19 04/03/19 04/03/19 Range/Units 02:44 05:20 05:20 WBC 10.8 H (4.0-10.5) K/mm3 RBC 4.64 (4.1-5.4) M/mm3 Hgb 13.8 (12.0-16.0) gm/dl Hct 42.6 (35-47) % MCV 91.8 (78-100) fl MCH 29.7 (26-32) pg MCHC 32.4 (32-36) g/dl RDW 13.2 (11.5-14.0) % Plt Count 277 (150-450) K/mm3 MPV 9.9 H (6-9.5) fl Gran % 81.4 H (36.0-66.0) % Eos # (Auto) 0.14 (0-0.5) Absolute Lymphs (auto) 1.15 (1.0-4.6) Absolute Monos (auto) 0.70 (0.0-1.3) Lymphocytes % 10.6 L (24.0-44.0) % Monocytes % 6.5 (0.0-12.0) % Eosinophils % 1.3 (0.00-5.0) % Basophils % 0.2 (0.0-0.4) % Absolute Granulocytes 8.82 H (1.4-6.9) Basophils # 0.02 (0-0.4) Sodium (137-145) mmol/L Potassium (3.5-5.1) mmol/L Chloride (98-107) mmol/L Carbon Dioxide (22-30) mmol/L Anion Gap (5-15) MEQ/L BUN (7-17) mg/dL Creatinine (0.52-1.04) mg/dL Estimated GFR ML/MIN Glucose (74-106) mg/dL Calcium (8.4-10.2) mg/dL Total Bilirubin (0.2-1.3) mg/dL AST (14-36) U/L ALT (0-35) U/L Alkaline Phosphatase (38-126) U/L Troponin I < 0.012 < 0.012 (0.000-0.034) ng/mL Serum Total Protein (6.3-8.2) g/dL Albumin (3.5-5.0) g/dL Amylase (30-110) U/L Lipase (23-300) U/L Urine Color (YELLOW) Urine Appearance (CLEAR) Urine pH (5-6) Ur Specific [place] (1.005-1.025) Urine Protein (Negative) Urine Ketones (NEGATIVE) Urine Blood (0-5) Abhinav/ul Urine Nitrite (NEGATIVE) Urine Bilirubin (NEGATIVE) Urine Urobilinogen (0-1) mg/dL Ur Leukocyte Esterase (NEGATIVE) Urine WBC (Auto) (0-5) /HPF Urine RBC (Auto) (0-2) /HPF U Epithel Cells (Auto) (FEW) /HPF Urine Bacteria (Auto) (NEGATIVE) /HPF Urine Mucus (Auto) (NEGATIVE) /HPF Urine Culture Reflexed (NO) Urine Glucose (NEGATIVE) mg/dL Urine Opiates Level (NEGATIVE) Ur Methadone (NEGATIVE) Urine Barbiturates (NEGATIVE) Ur Phencyclidine (PCP) (NEGATIVE) Urine Amphetamine (NEGATIVE) U Benzodiazepine Level (NEGATIVE) Urine Cocaine (NEGATIVE) Urine Marijuana (THC) (NEGATIVE) 04/03/19 04/03/19 Range/Units 05:20 08:40 WBC (4.0-10.5) K/mm3 RBC (4.1-5.4) M/mm3 Hgb (12.0-16.0) gm/dl Hct (35-47) % MCV (78-100) fl MCH (26-32) pg MCHC (32-36) g/dl RDW (11.5-14.0) % Plt Count (150-450) K/mm3 MPV (6-9.5) fl Gran % (36.0-66.0) % Eos # (Auto) (0-0.5) Absolute Lymphs (auto) (1.0-4.6) Absolute Monos (auto) (0.0-1.3) Lymphocytes % (24.0-44.0) % Monocytes % (0.0-12.0) % Eosinophils % (0.00-5.0) % Basophils % (0.0-0.4) % Absolute Granulocytes (1.4-6.9) Basophils # (0-0.4) Sodium 141 (137-145) mmol/L Potassium 4.0 (3.5-5.1) mmol/L Chloride 106 (98-107) mmol/L Carbon Dioxide 26 (22-30) mmol/L Anion Gap 13.7 (5-15) MEQ/L BUN 12 (7-17) mg/dL Creatinine 0.50 L (0.52-1.04) mg/dL Estimated GFR > 60.0 ML/MIN Glucose 124 H (74-106) mg/dL Calcium 8.9 (8.4-10.2) mg/dL Total Bilirubin 0.30 (0.2-1.3) mg/dL AST 20 (14-36) U/L ALT 33 (0-35) U/L Alkaline Phosphatase 70 (38-126) U/L Troponin I < 0.012 (0.000-0.034) ng/mL Serum Total Protein 7.1 (6.3-8.2) g/dL Albumin 4.2 (3.5-5.0) g/dL Amylase (30-110) U/L Lipase (23-300) U/L Urine Color (YELLOW) Urine Appearance (CLEAR) Urine pH (5-6) Ur Specific [place] (1.005-1.025) Urine Protein (Negative) Urine Ketones (NEGATIVE) Urine Blood (0-5) Abhianv/ul Urine Nitrite (NEGATIVE) Urine Bilirubin (NEGATIVE) Urine Urobilinogen (0-1) mg/dL Ur Leukocyte Esterase (NEGATIVE) Urine WBC (Auto) (0-5) /HPF Urine RBC (Auto) (0-2) /HPF U Epithel Cells (Auto) (FEW) /HPF Urine Bacteria (Auto) (NEGATIVE) /HPF Urine Mucus (Auto) (NEGATIVE) /HPF Urine Culture Reflexed (NO) Urine Glucose (NEGATIVE) mg/dL Urine Opiates Level (NEGATIVE) Ur Methadone (NEGATIVE) Urine Barbiturates (NEGATIVE) Ur Phencyclidine (PCP) (NEGATIVE) Urine Amphetamine (NEGATIVE) U Benzodiazepine Level (NEGATIVE) Urine Cocaine (NEGATIVE) Urine Marijuana (THC) (NEGATIVE) - Radiology Exams Ordered Rad Exams-Entire Visit: Radiology Procedures Category Date Time Status ABDOMEN AND PELVIS W CONTRAST [CT] Stat Exams 04/02/19 21:14 Completed - Discharge Disposition: Home, Self-Care Condition: Good Prescriptions: New Cefdinir 300 mg PO BID 7 Days #14 capsule Continue Gabapentin 300 mg PO TID Duloxetine HCl 60 mg PO DAILY Follow up with: STEPHANIE ACUNA [Primary Care Provider] - 1 Week
--- NOTE | 2019-04-03 14:46 | PCM.DCORD ---
- Discharge Disposition: Home, Self-Care Condition: Good Prescriptions: New Cefdinir 300 mg PO BID 7 Days #14 capsule Continue Gabapentin 300 mg PO TID Duloxetine HCl 60 mg PO DAILY Follow up with: STEPHANIE ACUNA [Primary Care Provider] - 1 Week
[2019-04-03] MEDS ORDERED: NEURONTIN 300 MG PO SCH (15:00)
[2019-04-03] MEDS ORDERED: Cymbalta 30 MG Capsule PO SCH (16:00)
== END 2019-04-03 15:50 | disposition home or self-care (01) ==
LOC: ED 20:29 → MED SURG 04-03 00:48
PROVIDERS: ADMIT Family Medicine; ATTEND Family Medicine
DX: R11.2 Nausea with vomiting, unspecified (principal); R10.33 Periumbilical pain; N39.0 Urinary tract infection, site not specified; Z79.899 Other long term (current) drug therapy
CPT/HCPCS: 36000; 36415; 74177; 80053; 80307; 81001; 82150; 83690; 84484; 85025; 87086; 93005; 93268; 96360; 96374; 96375; 96376; 99285; G0378; 87077; 87186; J0696; J2270; J2405

== ENCOUNTER 2019-11-25 16:52 | Emergency (ER) | payer MEDICAID, OTHER ==
[2019-11-25] MEDS ORDERED: BABY ASPIRIN 81 MG CHEW PO ONE (18:22)
[2019-11-25] MEDS ORDERED: SUBLIMAZE 100 MCG/2 ML IV ONE (18:22)
[2019-11-25] MEDS ORDERED: BABY ASPIRIN 81 MG CHEW ONE (18:26)
[2019-11-25] MEDS ORDERED: SUBLIMAZE 100 MCG/2 ML ONE (18:26)
[2019-11-25] MEDS ORDERED: Sodium Chloride 0.9% 1000 ML 1,000 ML ONE (18:26)
[2019-11-25] MEDS ORDERED: Sodium Chloride 0.9% 1000 ML 1,000 ML IV SCH (18:30)
[2019-11-25 19:16] LABS: Absolute Neutrophil Ct (ANC) 5.31 (1.4-6.9); BASOPHIL % 0.7 % (0.0-0.4); Basophil (Absolute #) 0.06 (0-0.4); Eosinophil (Absolute #) 0.36 (0-0.5); Hemoglobin 14.4 gm/dl (12.0-16.0); Lymphocytes % 26.9 % (24.0-44.0); Mean Cell Volume 88.5 fl (78-100); Mean Corpuscular Hgb Concent. 32.7 g/dl (32-36); Mean Platelet Volume 10.4 fl (6-9.5); Monocyte (Absolute #) 0.78 (0.0-1.3); Monocytes % 8.8 % (0.0-12.0); Neutrophil % 59.6 % (36.0-66.0); Platelet Count 282 K/mm3 (150-450); Red Blood Count 4.97 M/mm3 (4.1-5.4); Red Cell Distribution Width 13.4 % (11.5-14.0); White Blood Count 8.9 K/mm3 (4.0-10.5)
--- NOTE | 2019-11-25 19:16 | ERPHSYRPT ---
<GEOVANNY GRANADOS - Last Filed: 11/25/19 19:16> - History of Present Illness Time Seen by Provider: 11/25/19 17:00 Historian: patient Exam Limitations: no limitations Patient Subjective Stated Complaint: Pt states 'It all started last night, I have this pain in my chest, it gets worse when I walk. 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 I went to [facility] and they sent me here. I have been having a hard time breathing." Triage Nursing Assessment: Pt presented alert and oriented X 3, skin pwd pt presented in wheelchair, speaking rapidly in full complete sentecnes pt anxious. Physician History: chest pain hx of chondrodontritis Timing/Duration: yesterday Activities at Onset: none Quality: tightness Location: substernal Chest Pain Radiation: no radiation Severity of Pain-Max: moderate Severity of Pain-Current: moderate Modifying Factors: Improves With: movement Associated Symptoms: shortness of breath, diaphoresis Prior Chest Pain/Cardiac Workup: non-cardiac Nitro Today/Relief: no nitro taken today Aspirin Treatment Today: no aspirin today Allergies/Adverse Reactions: No Known Drug Allergies Allergy (Verified 04/02/19 20:43) Home Medications: Duloxetine HCl 60 mg PO DAILY 04/02/19 [History] Gabapentin 300 mg PO TID 04/02/19 [History] Hx Tetanus, Diphtheria Vaccination/Date Given: No Hx Influenza Vaccination/Date Given: No Hx Pneumococcal Vaccination/Date Given: No Immunizations Up to Date: Yes - Review of Systems Constitutional: No Fever, No Chills Eyes: No Symptoms Ears, Nose, & Throat: No Symptoms Respiratory: No Cough, No Dyspnea Cardiac: Chest Pain, No Edema, No Syncope Abdominal/Gastrointestinal: No Abdominal Pain, No Nausea, No Vomiting, No Diarrhea Genitourinary Symptoms: No Dysuria Musculoskeletal: No Back Pain, No Neck Pain Skin: No Rash Neurological: No Dizziness, No Focal Weakness, No Sensory Changes Psychological: No Symptoms Endocrine: No Symptoms All Other Systems: Reviewed and Negative - Past Medical History Pertinent Past Medical History: Yes Neurological History: No Pertinent History ENT History: No Pertinent History Cardiac History: No Pertinent History Respiratory History: No Pertinent History Endocrine Medical History: No Pertinent History Musculoskeletal History: Degenerative Disk Disease, Osteoarthritis GI Medical History: No Pertinent History History: No Pertinent History Psycho-Social History: Anxiety, Depression Female Reproductive Disorders: Other Other Medical History: HYSTERECTOMY, HX OF SURGERY FOR REPAIR OF EAR BONES - Past Surgical History Past Surgical History: Yes Neuro Surgical History: No Pertinent History Cardiac: No Pertinent History Respiratory: No Pertinent History Gastrointestinal: No Pertinent History Genitourinary: No Pertinent History Musculoskeletal: No Pertinent History Female Surgical History: Hysterectomy Other Surgical History: right ear surgery - Social History Smoking Status: Never smoker Exposure to second hand smoke: No Drug Use: none Patient Lives Alone: No - Female History Hx Now: No - Nursing Vital Signs Nursing Vital Signs: Initial Vital Signs Temperature 98.3 F 11/25/19 16:59 Pulse Rate 82 11/25/19 16:59 Respiratory Rate 24 11/25/19 16:59 Blood Pressure 160/85 11/25/19 16:59 O2 Sat by Pulse Oximetry 97 11/25/19 16:59 Pain Scale Pain Intensity 4 - Physical Exam General Appearance: no apparent distress, alert Eye Exam: PERRL/EOMI, eyes nml inspection Ears, Nose, Throat Exam: normal ENT inspection, moist mucous membranes Neck Exam: normal inspection, non-tender, supple, full range of motion Respiratory Exam: normal breath sounds, lungs clear, No respiratory distress Cardiovascular Exam: regular rate/rhythm, normal heart sounds Gastrointestinal/Abdomen Exam: soft, No tenderness, No mass Back Exam: normal inspection, No CVA tenderness, No vertebral tenderness Extremity Exam: normal inspection, normal range of motion Neurologic Exam: alert, oriented x 3, cooperative, normal mood/affect, sensation nml, No motor deficits Skin Exam: normal color, warm, dry SpO2: 97 - Course Nursing assessment & vital signs reviewed: Yes EKG Interpreted by Me: RATE (78), Sinus Rhythm, Non-specific ST Changes Ordered Tests: Active Orders 24 hr Category Date Time Status CHEST 1 VIEW (PORTABLE) Stat Exams 11/25/19 18:22 Taken CBC W DIFF Stat Lab 11/25/19 19:00 Completed CK-Creatinine Phosphokinase Stat Lab 11/25/19 19:00 Completed CMP Stat Lab 11/25/19 19:00 Completed D-DIMER QUANTITATIVE Stat Lab 11/25/19 19:00 Completed NT PRO BNP Stat Lab 11/25/19 19:00 Completed TROPONIN Q3H Lab 11/25/19 19:00 Completed TROPONIN Q3H Lab 11/25/19 21:30 Ordered TROPONIN Q3H Lab 11/26/19 00:30 Ordered TROPONIN Q3H Lab 11/26/19 03:30 Ordered TROPONIN Q3H Lab 11/26/19 06:30 Ordered Medication Summary Generic Name Dose Route Start Last Admin Trade Name Qasim PRN Reason Stop Dose Admin Sodium Chloride 1,000 mls @ 100 mls/hr 11/25/19 18:30 11/25/19 18:29 Sodium Chloride 0.9% 1000 Ml IV 12/25/19 18:29 100 mls/hr .Q10H MICHAEL Administration Discontinued Medications Generic Name Dose Route Start Last Admin Trade Name Qasim PRN Reason Stop Dose Admin Aspirin 324 mg 11/25/19 18:22 11/25/19 18:29 Baby Aspirin 81 Mg Chew PO 11/25/19 18:23 324 mg STAT ONE Administration Aspirin Confirm 11/25/19 18:26 Baby Aspirin 81 Mg Chew Administered 11/25/19 18:27 Dose 324 mg .ROUTE .STK-MED ONE Fentanyl Citrate 50 mcg 11/25/19 18:22 11/25/19 18:28 Sublimaze 100 Mcg/2 Ml IV 11/25/19 18:23 50 mcg STAT ONE Administration Fentanyl Citrate Confirm 11/25/19 18:26 Sublimaze 100 Mcg/2 Ml Administered 11/25/19 18:27 Dose 100 mcg .ROUTE .STK-MED ONE Lab/Rad Data: Laboratory Result Diagrams 11/25/19 19:00 11/25/19 19:00 Laboratory Results 11/25/19 11/25/19 11/25/19 Range/Units 19:00 19:00 19:00 WBC (4.0-10.5) K/mm3 RBC (4.1-5.4) M/mm3 Hgb (12.0-16.0) gm/dl Hct (35-47) % MCV (78-100) fl MCH (26-32) pg MCHC (32-36) g/dl RDW (11.5-14.0) % Plt Count (150-450) K/mm3 MPV (6-9.5) fl Gran % (36.0-66.0) % Eos # (Auto) (0-0.5) Absolute Lymphs (auto) (1.0-4.6) Absolute Monos (auto) (0.0-1.3) Lymphocytes % (24.0-44.0) % Monocytes % (0.0-12.0) % Eosinophils % (0.00-5.0) % Basophils % (0.0-0.4) % Absolute Granulocytes (1.4-6.9) Basophils # (0-0.4) D-Dimer 442 (215-500) ng/mL Sodium 137 (137-145) mmol/L Potassium 3.8 (3.5-5.1) mmol/L Chloride 105 (98-107) mmol/L Carbon Dioxide 26 (22-30) mmol/L Anion Gap 10.3 (5-15) MEQ/L BUN 19 H (7-17) mg/dL Creatinine 0.55 (0.52-1.04) mg/dL Estimated GFR > 60.0 ML/MIN Glucose 99 (74-106) mg/dL Calcium 9.4 (8.4-10.2) mg/dL Total Bilirubin 0.30 (0.2-1.3) mg/dL AST 25 (14-36) U/L ALT 36 H (0-35) U/L Alkaline Phosphatase 73 (38-126) U/L Creatine Kinase 46 (30-135) U/L Troponin I < 0.012 (0.000-0.034) ng/mL NT-Pro-B Natriuret Pep 56.0 (0-900) pg/mL Serum Total Protein 7.4 (6.3-8.2) g/dL Albumin 4.3 (3.5-5.0) g/dL 11/25/19 Range/Units 19:00 WBC 8.9 (4.0-10.5) K/mm3 RBC 4.97 (4.1-5.4) M/mm3 Hgb 14.4 (12.0-16.0) gm/dl Hct 44.0 (35-47) % MCV 88.5 (78-100) fl MCH 29.0 (26-32) pg MCHC 32.7 (32-36) g/dl RDW 13.4 (11.5-14.0) % Plt Count 282 (150-450) K/mm3 MPV 10.4 H (6-9.5) fl Gran % 59.6 (36.0-66.0) % Eos # (Auto) 0.36 (0-0.5) Absolute Lymphs (auto) 2.40 (1.0-4.6) Absolute Monos (auto) 0.78 (0.0-1.3) Lymphocytes % 26.9 (24.0-44.0) % Monocytes % 8.8 (0.0-12.0) % Eosinophils % 4.0 (0.00-5.0) % Basophils % 0.7 (0.0-0.4) % Absolute Granulocytes 5.31 (1.4-6.9) Basophils # 0.06 (0-0.4) D-Dimer (215-500) ng/mL Sodium (137-145) mmol/L Potassium (3.5-5.1) mmol/L Chloride (98-107) mmol/L Carbon Dioxide (22-30) mmol/L Anion Gap (5-15) MEQ/L BUN (7-17) mg/dL Creatinine (0.52-1.04) mg/dL Estimated GFR ML/MIN Glucose (74-106) mg/dL Calcium (8.4-10.2) mg/dL Total Bilirubin (0.2-1.3) mg/dL AST (14-36) U/L ALT (0-35) U/L Alkaline Phosphatase (38-126) U/L Creatine Kinase (30-135) U/L Troponin I (0.000-0.034) ng/mL NT-Pro-B Natriuret Pep (0-900) pg/mL Serum Total Protein (6.3-8.2) g/dL Albumin (3.5-5.0) g/dL - Progress Progress Note: 11/25/19 19:[address] otero - Departure Clinical Impression: Atypical chest pain Dyspnea Qualifiers: Dyspnea type: unspecified Qualified Code(s): R06.00 - Dyspnea, unspecified Condition: Stable Referrals: STEPHANIE ACUNA [Primary Care Provider] - Instructions: Atypical Chest Pain Additional Instructions: MATEOANA HORNE was seen on 11/25/19 n the Emergency Room. At that time you were treated for an emergent condition, during your visit Laboratory, Radiology and/or other procedures may have been ordered. It is very important that you follow-up with your Primary Care Physician STEPHANIE ACUNA within the next 24-48 hours to review your Emergency Room visit and the final results of testing that was ordered. Some test results such as Urine Cultures, Blood Cultures, and other cultures if ordered will not be finalized for 24-48 hours. If you do not have a Primary Care Provider please call the medical records department at [phone] ext [phone] to obtain a copy of your results or you may sign into our patient portal to obtain these results by visiting us @ [email or web address] and completing the following steps: 1. Click on the Patient Portal link 2. Click the Patient Self Enrollment Link to complete the enrollment form and entering your 3. Once the enrollment form is completed you will receive an email with a temporary ID and password at the email address you provided. 4. Next choose a user name and password. Your user name must be at least 4 characters long and your password must be at least 4 characters long. 5. Choose a security question from the list and provide your answer to the question. If you already have signed into the Health Portal you may access your Health Care Information 22/06 by the following steps: 1. Login to our website @ [email or web address] 2. Enter your original user name and password. FAQS The [facility] Health Portal is an online tool that contains your Lab Results, Radiology Reports, Visit History, Discharge Instructions and Health Summary Lab and Radiology Results will not be available for 72 hours on the portal. The Portal is a secure site, passwords are encryted and URLs are re-written so they cannot be copied and pasted. You and authorized family members are the only ones who can access your Portal. Also there is a timeout feature that protects your information if you leave the Portal page open. If you have technical difficulty please use the Contact Us link on the page this will allow you to submit any questions you have regarding the Portal or you may contact the Medical Record Department at [phone]. Discharge/Care Plan ANA GALINDO was seen on 11/25/19 in the Emergency Room. The patient was counseled regarding Diagnosis,Lab results, Imaging studies, need for follow up and when to return to the Emergency Room. Prescriptions given: Discharge Note I have spoken with the patient and/or caregivers. I have explained the patient' s condition, diagnosis and treatment plan based on the information available to me at this time. I have answered the patient's and/or caregiver's questions and addressed any concerns. The patient and/or caregivers have as good understanding of the patient's diagnosis, condition and treatment plan as can be expected at this point. The vital signs have been stable. The patient's condition is stable and appropriate for discharge from the emergency department. The patient will pursue further outpatient evaluation with the primary care physician or other designated or consulting physician as outlined in the discharge instructions. The patient and/or caregivers are agreeable to this plan of care and follow-up instructions have been explained in detail. The patient and/or caregivers have received these instruction. The patient/and or caregivers are aware that any significant change in condition or worsening of symptoms should prompt an immediate return to this or the closest emergency department or call 911. <EDU OTERO - Last Filed: 11/25/19 20:17> - Progress Progress: improved Counseled pt/family regarding: lab results, diagnosis, need for follow-up, rad results - Departure Departure Disposition: Home Critical Care Time: Yes Critical Care Time(excluding separately billable procedures): Critical 30-74 mins
[2019-11-25 19:37] LABS: ALBUMIN 4.3 g/dL (3.5-5.0); ALKALINE PHOSPHATASE 73 U/L (38-126); ANION GAP 10.3 MEQ/L (5-15); BLOOD UREA NITROGEN 19 mg/dL (7-17); CHLORIDE 105 mmol/L (98-107); CK-Creatinine Phosphokinase 46 U/L (30-135); Calcium 9.4 mg/dL (8.4-10.2); Carbon Dioxide 26 mmol/L (22-30); Creatinine 1 0.55 mg/dL (0.52-1.04); Glucose 99 mg/dL (74-106); Potassium 3.8 mmol/L (3.5-5.1); SGOT/AST 25 U/L (14-36); SGPT/ALT 36 U/L (0-35); SODIUM 137 mmol/L (137-145); Total Protein 7.4 g/dL (6.3-8.2)
[2019-11-25 20:24] LABS: INFLUENZA A NEGATIVE (NEGATIVE); INFLUENZA B NEGATIVE (NEGATIVE); RESPIRATORY SYNCTIAL VIRUS NEGATIVE (Negative)
[2019-11-25 20:29] LABS: Slide Review 1 YES
[2019-11-25 20:39] VITALS: BP 136/82; PULSE 98; O2SAT 96
--- NOTE | 2019-11-25 22:23 | XRAY ---
Indication: Chest tightness. Short of breath. Comparison: None Portable chest demonstrates normal heart and lungs with incidental right base calcified granuloma and mediastinal/left hilar calcified nodes. Bony thorax intact. Impression: Nonacute chest. Evidence for old granulomatous disease.
== END 2019-11-25 20:39 | disposition home or self-care (01) ==
LOC: ED 16:52
DX: R07.89 Other chest pain (principal); R06.00 Dyspnea, unspecified; Z79.899 Other long term (current) drug therapy
CPT/HCPCS: 36415; 71045; 80053; 82550; 83880; 84484; 85025; 85379; 87631; 96374; 99284; 99291; J3010; A9270-GY

== ENCOUNTER 2020-08-22 11:48 | Day surgery (SDC) | payer OTHER ==
[~2020-08-22 11:48] MED LIST: DIPRIVAN 200 MG/20 ML IV ONE
[2020-08-22] MEDS ORDERED: Sodium Chloride 0.9(Preservative Free) 10 ML IJ ONE (11:49)
[2020-08-22] MEDS ORDERED: Depo-Medrol 40 MG/ML IM ONE (11:49)
[2020-08-22] MEDS ORDERED: Lactated Ringers 1,000 ML IV ONE (13:54)
--- NOTE | 2020-08-23 15:05 | XRAY ---
42 seconds fluoroscopy time in surgery for right L4-S1 transforaminal DEENA.
--- NOTE | 2020-08-25 22:57 | XRAY ---
Indication: Right L4-S1 transforaminal DEENA. Intraoperative fluoroscopy was provided for 42 seconds. 4 digital spot images submitted for interpretation demonstrate posterior needle tips projected over the expected course of the right L4 and L5 nerve roots. A small amount of contrast has been injected for needle tip placement. Correlate with intraoperative findings/report.
== END 2020-08-22 14:05 | disposition home or self-care (01) ==
LOC: SDC-PAIN 11:48
PROVIDERS: ATTEND Psychiatry & Neurology Pain Medicine
DX: M54.16 Radiculopathy, lumbar region (principal); J44.9 Chronic obstructive pulmonary disease, unspecified; F41.8 Other specified anxiety disorders; E83.119 Hemochromatosis, unspecified; Z79.899 Other long term (current) drug therapy
CPT/HCPCS: 64483; 64484; 72100; 77003; J1030; J2704; Q9966

== ENCOUNTER 2020-09-19 11:05 | Day surgery (SDC) | payer OTHER ==
[~2020-09-19 11:05] MED LIST changes: +Ketamine HCl 50 MG/ML ONE
[2020-09-19] MEDS ORDERED: LIDOCAINE HCL 2% 100 MG/5 ML IJ ONE (11:06)
[2020-09-19] MEDS ORDERED: Depo-Medrol 40 MG/ML IM ONE (11:06)
[2020-09-19] MEDS ORDERED: Lactated Ringers 1,000 ML IV ONE (13:49)
--- NOTE | 2020-09-19 14:15 | XRAY ---
Indication: Bilateral L4-S1 MBB. Intraoperative fluoroscopy was provided for 29 seconds. Single digital spot image submitted for interpretation demonstrates posterior needle tips projecting over the expected left and right L4-S1 nerve roots. Correlate with intraoperative findings/report.
--- NOTE | 2020-09-19 16:55 | XRAY ---
29 seconds of fluoroscopy was used in surgery for a bilateral L4-L5, L5-S1 MBB.
== END 2020-09-19 13:05 | disposition home or self-care (01) ==
LOC: SDC-PAIN 11:05
PROVIDERS: ATTEND Psychiatry & Neurology Pain Medicine
DX: M47.816 Spondylosis without myelopathy or radiculopathy, lumbar region (principal); J44.9 Chronic obstructive pulmonary disease, unspecified; F41.8 Other specified anxiety disorders; E83.119 Hemochromatosis, unspecified; Z79.899 Other long term (current) drug therapy
CPT/HCPCS: 64493; 64494; 72020; 77002; J1030; J2704

== ENCOUNTER 2020-10-17 11:43 | Day surgery (SDC) | payer OTHER ==
[2020-10-17] MEDS ORDERED: Depo-Medrol 40 MG/ML IM ONE (11:44)
[2020-10-17] MEDS ORDERED: BUPIVACAINE 0.5% VIAL IJ ONE (11:44)
[2020-10-17] MEDS ORDERED: Ketamine HCl 50 MG/ML ONE (13:22)
[2020-10-17] MEDS ORDERED: DIPRIVAN 200 MG/20 ML IV ONE (13:22)
--- NOTE | 2020-10-17 14:05 | XRAY ---
Indication: Bilateral L4-S1 MBB. Intraoperative fluoroscopy was provided for 16 seconds. Single digital spot image submitted for interpretation demonstrates posterior needle tips projecting over the expected left and right L4-S1 nerve roots. Correlate with intraoperative findings/report.
--- NOTE | 2020-10-17 14:09 | XRAY ---
16 seconds fluoroscopy time in surgery for bilateral L4-S1 MBB.
[2020-10-17] MEDS ORDERED: Lactated Ringers 1,000 ML IV ONE (15:43)
== END 2020-10-17 13:49 | disposition home or self-care (01) ==
LOC: SDC-PAIN 11:43
PROVIDERS: ATTEND Psychiatry & Neurology Pain Medicine
DX: M47.816 Spondylosis without myelopathy or radiculopathy, lumbar region (principal); J44.9 Chronic obstructive pulmonary disease, unspecified; E83.119 Hemochromatosis, unspecified; F41.8 Other specified anxiety disorders; Z79.899 Other long term (current) drug therapy
CPT/HCPCS: 64493; 64494; 72020; 77002; J1030; J2704

== ENCOUNTER 2020-11-23 23:45 | Emergency (ER) | payer OTHER ==
[2020-11-24] MEDS ORDERED: MORPHINE SULFATE 4 MG INJ IV ONE (00:03)
[2020-11-24] MEDS ORDERED: Zofran 4 MG/2 ML VIAL IV ONE (00:03)
[2020-11-24] MEDS ORDERED: BABY ASPIRIN 81 MG CHEW PO ONE (00:03)
[2020-11-24] MEDS ORDERED: Nitrostat 0.4 MG (ED) SL ONE (00:03)
--- NOTE | 2020-11-24 00:03 | ERPHSYRPT ---
- History of Present Illness Time Seen by Provider: 11/24/20 00:03 Historian: patient Exam Limitations: no limitations Physician History: This is a 65-year-old morbidly obese white female with a history of chronic atypical chest pain and COPD and presents with suddenly worsening shortness of breath followed by anxiety and then some chest tightness and aching. Patient does see a pain specialist. She also sees a wedding florist, Dr. Mathew. Her primary care physician is Dr. Delong. Her cash on delivery clerk is Dr. King. she has never been diagnosed with any coronary artery disease. Her wedding florist has ordered an outpatient CTA of the chest. Patient has a history of anxiety and depression she is a history of osteoarthritis and degenerative joint disease. Patient denies cough. She denies fever. She denies nausea vomiting and diarrhea. Timing/Duration: today Activities at Onset: activity Quality: aching Location: substernal, central Chest Pain Radiation: no radiation Severity of Pain-Max: mild Severity of Pain-Current: mild Modifying Factors: Improves With: nothing Associated Symptoms: denies symptoms Prior Chest Pain/Cardiac Workup: cardiac cath, echocardiography Nitro Today/Relief: no nitro taken today Aspirin Treatment Today: no aspirin today Allergies/Adverse Reactions: No Known Drug Allergies Allergy (Verified 11/23/20 23:59) Home Medications: Duloxetine HCl 60 mg PO DAILY 04/02/19 [History] Gabapentin 600 mg PO TID 04/02/19 [History] Albuterol Sulfate [Ventolin Hfa] 2 puffs IH Q4H PRN PRN 07/11/20 [History] Fluticasone/Salmeterol [Advair 250-50 Diskus] 1 each IH BID 07/11/20 [History] Loratadine 10 mg [Claritin 10 mg] 10 mg PO DAILY 07/11/20 [History] Hx Tetanus, Diphtheria Vaccination/Date Given: No Hx Influenza Vaccination/Date Given: No Hx Pneumococcal Vaccination/Date Given: No Travel Risk - International Travel Have you traveled outside of the country in past 3 weeks: No - Coronavirus Screening Are you exhibiting any of the following symptoms?: No Close contact with a COVID-19 positive Pt in past 14-21 Days: No - Review of Systems Constitutional: No Symptoms Eyes: No Symptoms Ears, Nose, & Throat: No Symptoms Respiratory: Dyspnea, Wheezing Cardiac: Chest Pain Abdominal/Gastrointestinal: No Symptoms Genitourinary Symptoms: No Symptoms Musculoskeletal: No Symptoms Skin: No Symptoms Neurological: No Symptoms Psychological: No Symptoms Endocrine: No Symptoms Hematologic/Lymphatic: No Symptoms Immunological/Allergic: No Symptoms All Other Systems: Reviewed and Negative - Past Medical History Pertinent Past Medical History: Yes Neurological History: No Pertinent History ENT History: No Pertinent History Cardiac History: No Pertinent History Respiratory History: Asthma, COPD Endocrine Medical History: No Pertinent History Musculoskeletal History: Degenerative Disk Disease, Osteoarthritis GI Medical History: No Pertinent History History: No Pertinent History Psycho-Social History: Anxiety, Depression Female Reproductive Disorders: Other Other Medical History: HYSTERECTOMY, HX OF SURGERY FOR REPAIR OF EAR BONES - Past Surgical History Past Surgical History: Yes Neuro Surgical History: No Pertinent History Cardiac: No Pertinent History Respiratory: No Pertinent History Gastrointestinal: No Pertinent History Genitourinary: No Pertinent History Musculoskeletal: No Pertinent History Female Surgical History: Hysterectomy Other Surgical History: right ear surgery - Social History Smoking Status: Never smoker Exposure to second hand smoke: No Drug Use: none Patient Lives Alone: No - Nursing Vital Signs Nursing Vital Signs: Initial Vital Signs Temperature 98.3 F 11/24/20 00:00 Pulse Rate 88 11/24/20 00:00 Respiratory Rate 28 H 11/24/20 00:00 Blood Pressure 137/88 11/24/20 00:00 O2 Sat by Pulse Oximetry 96 11/24/20 00:00 Pain Scale Pain Intensity 0 - Physical Exam General Appearance: no apparent distress, alert, anxiety, obese Eye Exam: PERRL/EOMI, eyes nml inspection Ears, Nose, Throat Exam: normal ENT inspection, moist mucous membranes Neck Exam: normal inspection, non-tender, supple, full range of motion Respiratory Exam: normal breath sounds, chest tenderness, lungs clear, airway intact, wheezing, No respiratory distress Cardiovascular Exam: regular rate/rhythm, normal heart sounds, normal peripheral pulses Gastrointestinal/Abdomen Exam: soft, normal bowel sounds, No tenderness Pelvic Exam: not done Rectal Exam: not done Extremity Exam: normal inspection, normal range of motion, pelvis stable Neurologic Exam: alert, oriented x 3, cooperative, skin lifter bacon II-XII nml as tested, normal mood/affect, nml cerebellar function, nml station & gait, sensation nml Skin Exam: normal color, warm, dry Lymphatic Exam: No adenopathy SpO2 Interpretation: normal O2 Delivery: Room Air - Course Nursing assessment & vital signs reviewed: Yes EKG Interpreted by Me: RATE ([id number]), Sinus Rhythm, NORMAL AXIS, NORMAL INTERVALS, NORMAL QRS, Non-specific ST Changes, Other (No significant changes when compared to EKG dated 07/12/2020. There are no acute ischemic changes on today's EKG.) Ordered Tests: Active Orders 24 hr Category Date Time Status Hardwood Flooring Specialist STAT Care 11/24/20 00:04 Active EKG-ER Only STAT Care 11/24/20 00:03 Active IV Insertion STAT Care 11/24/20 00:03 Active Pulse Oximetry (ED) STAT Care 11/24/20 00:03 Active CHEST WITH CONTRAST [CT] Stat Exams 11/24/20 00:28 Taken CBC W DIFF Stat Lab 11/24/20 00:16 Completed CMP Stat Lab 11/24/20 00:16 Completed D-DIMER QUANTITATIVE Stat Lab 11/24/20 00:16 Completed Manual Differential NC Stat Lab 11/24/20 00:16 Completed NT PRO BNP Stat Lab 11/24/20 00:16 Completed PROTIME WITH INR Stat Lab 11/24/20 00:16 Completed TROPONIN Q3H Lab 11/24/20 00:16 Completed TROPONIN Q3H Lab 11/24/20 03:15 Ordered TROPONIN Q3H Lab 11/24/20 06:15 Ordered TROPONIN Q3H Lab 11/24/20 09:15 Ordered TROPONIN Q3H Lab 11/24/20 12:15 Ordered Respiratory Therapy Assessment DAILY RT 11/24/20 00:42 Completed Medication Summary Discontinued Medications Generic Name Dose Route Start Last Admin Trade Name Freq PRN Reason Stop Dose Admin Albuterol Sulfate Confirm 11/24/20 00:34 Proventil 2.5 Mg/3 Ml Neb Administered 11/24/20 00:35 Dose 2.5 mg IH .STK-MED ONE Albuterol Sulfate 2.5 mg 11/24/20 00:40 11/24/20 00:41 Proventil 2.5 Mg/3 Ml Neb IH 11/24/20 00:41 2.5 mg STAT ONE Administration Aspirin 324 mg 11/24/20 00:03 11/24/20 00:20 Baby Aspirin 81 Mg Chew PO 11/24/20 00:04 324 mg STAT ONE Administration Methylprednisolone Sodium Succinate 125 mg 11/24/20 00:28 11/24/20 01:07 Solu-Medrol 125 Mg IV 11/24/20 00:29 125 mg STAT ONE Administration Methylprednisolone Sodium Succinate Confirm 11/24/20 01:06 Solu-Medrol 125 Mg Administered 11/24/20 01:07 Dose 125 mg .ROUTE .STK-MED ONE Morphine Sulfate 4 mg 11/24/20 00:03 11/24/20 00:21 Morphine Sulfate 4 Mg Inj IV 11/24/20 00:04 4 mg STAT ONE Administration Morphine Sulfate Confirm 11/24/20 00:19 Morphine Sulfate 4 Mg Inj Administered 11/24/20 00:20 Dose 4 mg .ROUTE .STK-MED ONE Nitroglycerin 0.4 mg 11/24/20 00:03 11/24/20 00:20 Nitrostat 0.4 Mg (Ed) SL 11/24/20 00:04 0.4 mg STAT ONE Administration Ondansetron HCl 4 mg 11/24/20 00:03 11/24/20 00:20 Zofran 4 Mg/2 Ml Vial IV 11/24/20 00:04 4 mg STAT ONE Administration Ondansetron HCl Confirm 11/24/20 00:19 Zofran 4 Mg/2 Ml Vial Administered 11/24/20 00:20 Dose 4 mg .ROUTE .STK-MED ONE Lab/Rad Data: Laboratory Result Diagrams 11/24/20 00:16 11/24/20 00:16 Laboratory Results 11/24/20 11/24/20 11/24/20 Range/Units 00:16 00:16 00:16 WBC (4.0-10.5) K/mm3 RBC (4.1-5.4) M/mm3 Hgb (12.0-16.0) gm/dl Hct (35-47) % MCV (78-100) fl MCH (26-32) pg MCHC (32-36) g/dl RDW (11.5-14.0) % Plt Count (150-450) K/mm3 MPV (7.5-11.0) fl PT 11.5 (9.95-12.35) SECONDS INR 1.02 (0.8-3.0) D-Dimer 608 H* (215-500) ng/mL Sodium 137 (137-145) mmol/L Potassium 4.3 (3.5-5.1) mmol/L Chloride 103 (98-107) mmol/L Carbon Dioxide 26 (22-30) mmol/L Anion Gap 12.5 (5-15) MEQ/L BUN 16 (7-17) mg/dL Creatinine 0.89 (0.52-1.04) mg/dL Estimated GFR > 60.0 ML/MIN Glucose 111 H (74-106) mg/dL Calcium 9.0 (8.4-10.2) mg/dL Total Bilirubin 0.30 (0.2-1.3) mg/dL AST 26 (14-36) U/L ALT 36 H (0-35) U/L Alkaline Phosphatase 66 (38-126) U/L Troponin I < 0.012 (0.000-0.034) ng/mL NT-Pro-B Natriuret Pep 58.8 (0-900) pg/mL Serum Total Protein 6.8 (6.3-8.2) g/dL Albumin 4.2 (3.5-5.0) g/dL 11/24/20 Range/Units 00:16 WBC 8.0 (4.0-10.5) K/mm3 RBC 4.56 (4.1-5.4) M/mm3 Hgb 13.1 (12.0-16.0) gm/dl Hct 41.0 (35-47) % MCV 89.9 (78-100) fl MCH 28.7 (26-32) pg MCHC 32.0 (32-36) g/dl RDW 14.3 H (11.5-14.0) % Plt Count 291 (150-450) K/mm3 MPV 9.9 (7.5-11.0) fl PT (9.95-12.35) SECONDS INR (0.8-3.0) D-Dimer (215-500) ng/mL Sodium (137-145) mmol/L Potassium (3.5-5.1) mmol/L Chloride (98-107) mmol/L Carbon Dioxide (22-30) mmol/L Anion Gap (5-15) MEQ/L BUN (7-17) mg/dL Creatinine (0.52-1.04) mg/dL Estimated GFR ML/MIN Glucose (74-106) mg/dL Calcium (8.4-10.2) mg/dL Total Bilirubin (0.2-1.3) mg/dL AST (14-36) U/L ALT (0-35) U/L Alkaline Phosphatase (38-126) U/L Troponin I (0.000-0.034) ng/mL NT-Pro-B Natriuret Pep (0-900) pg/mL Serum Total Protein (6.3-8.2) g/dL Albumin (3.5-5.0) g/dL - Progress Progress: improved, re-examined Air Movement: good Progress Note: 11/24/20 01:44 CTA of the chest/pulmonary embolism protocol the night time radiologist called regarding the findings on this CTA of chest. He stated that within the limits of the study there were no pulmonary emboli present. 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 He stated that he believes that this superior mesenteric arterial dissection could be old but he is not certain of the age that it is present. Clinically, the patient does not have any abdominal pain or abdominal complaints of any kind. We will discharge the patient to home. Blood Culture(s) Obtained: No Antibiotics given: No Counseled pt/family regarding: lab results, diagnosis, need for follow-up, rad results - Departure Departure Disposition: Home Clinical Impression: Shortness of breath, COPD exacerbation Condition: Stable Critical Care Time: No Referrals: STEPHANIE DELONG [Primary Care Provider] - Instructions: Chronic Obstructive Pulmonary Disease Additional Instructions: Medication as prescribed. Follow-up with your prescribing doctor on 11/26/2020. Return to the emergency department if symptoms worsen. Prescriptions: Prednisone 10 mg [Deltasone 10 mg] 10 mg PO TID #12 tablet
[2020-11-24] MEDS ORDERED: Zofran 4 MG/2 ML VIAL ONE (00:19)
[2020-11-24] MEDS ORDERED: MORPHINE SULFATE 4 MG INJ ONE (00:19)
[2020-11-24 00:22] LABS: Hemoglobin 13.1 gm/dl (12.0-16.0); Mean Cell Volume 89.9 fl (78-100); Mean Corpuscular Hemoglobin 28.7 pg (26-32); Mean Platelet Volume 9.9 fl (7.5-11.0); Platelet Count 291 K/mm3 (150-450); Red Blood Count 4.56 M/mm3 (4.1-5.4); Red Cell Distribution Width 14.3 % (11.5-14.0)
[2020-11-24] MEDS ORDERED: solu-MEDROL 125 MG IV ONE (00:28)
[2020-11-24 00:29] LABS: INR 1.02 (0.8-3.0); PROTIME 11.5 SECONDS (9.95-12.35)
[2020-11-24] MEDS ORDERED: PROVENTIL 2.5 MG/3 ML NEB IH ONE ×2 (00:34→00:40)
[2020-11-24 00:42] LABS: ALBUMIN 4.2 g/dL (3.5-5.0); ALKALINE PHOSPHATASE 66 U/L (38-126); ANION GAP 12.5 MEQ/L (5-15); BLOOD UREA NITROGEN 16 mg/dL (7-17); CHLORIDE 103 mmol/L (98-107); Carbon Dioxide 26 mmol/L (22-30); Creatinine 1 0.89 mg/dL (0.52-1.04); EST GLOMERULAR FILTRATION RATE > 60.0 ML/MIN; Glucose 111 mg/dL (74-106); NT PRO BNP 58.8 pg/mL (0-900); Potassium 4.3 mmol/L (3.5-5.1); SGOT/AST 26 U/L (14-36); SGPT/ALT 36 U/L (0-35); SODIUM 137 mmol/L (137-145); Total Protein 6.8 g/dL (6.3-8.2)
[2020-11-24] MEDS ORDERED: solu-MEDROL 125 MG ONE (01:06)
[2020-11-24 02:17] VITALS: BP 116/90; PULSE 86; O2SAT 94
[2020-11-24 02:30] LABS: ATYPICAL LYMPHS 2 %; BAND 2 % (0.0-2.0); Eosinophil 2 % (0.00-3.0); Lymphocytes 36 % (24-44); Monocyte 6 % (0.0-12.0); Neutrophils 52 % (36.0-66.0); Platelet Estimate NORMAL (NORMAL); Total Cells Counted 100
--- NOTE | 2020-11-24 08:54 | XRAY ---
Indication: Substernal chest pain. Short of breath, wheezing, and elevated d-dimer. Multiple contiguous axial images obtained through the chest using 100 cc Isovue 370 contrast and PE protocol. Comparison: None There is suboptimal opacification of the pulmonary arteries limiting evaluation of the lobar and segmental branches. No central pulmonary embolus. Heart is not enlarged. Aorta is normal in course and caliber. Small mediastinal and left hilar calcified nodes. No pathologic mediastinal/hilar lymphadenopathy. Lungs are inflated without suspicious pulmonary mass, infiltrate, or effusion. Bony thorax intact with minimal degenerative changes throughout the spine. Limited upper abdomen demonstrates mild fatty liver, 13.5 cm splenomegaly, and gallstones largest 1.7 cm. Query proximal superior mesenteric artery dissection versus artifact (imaged 246, series 2). Left kidney demonstrates incidental 7 mm mid renal cyst posteriorly and incompletely visualized hydronephrosis without perinephric fluid. Impression: 1. Pulmonary embolus evaluation limited due to suboptimal contrast opacification. No central pulmonary embolus. 2. No acute cardiopulmonary abnormalities. 3. Query superior mesenteric artery dissection versus artifact. Dedicated CTA abdominal aorta may yield further information. 4. Incompletely visualized left renal hydronephrosis. Rule out obstructive uropathy. 5. Incidental cholelithiasis, fatty liver, splenomegaly, left renal cyst, and old granulomatous disease. Comment: Preliminary interpretation was made by [facility] who does not report hydronephrosis. Telephone report given to Dr. Dean in the ER at 0842 hrs. on November 24, 2020.
== END 2020-11-24 02:17 | disposition home or self-care (01) ==
LOC: ED 23:45
DX: R06.02 Shortness of breath (principal); J44.1 Chronic obstructive pulmonary disease with (acute) exacerbation; E66.01 Morbid (severe) obesity due to excess calories; Z79.899 Other long term (current) drug therapy
CPT/HCPCS: 36000; 36415; 71260; 80053; 83880; 84484; 85025; 85379; 85610; 93005; 93041; 94640; 94760; 96374; 96375; 99284; J2270; J2405; J2930; J7609; A9270-GY

== ENCOUNTER 2021-02-06 11:25 | Day surgery (SDC) | payer OTHER ==
[2021-02-06] MEDS ORDERED: BUPIVACAINE 0.5% VIAL IJ ONE (11:26)
[2021-02-06] MEDS ORDERED: Xylocaine 1% Vial 30 ML PF IJ ONE (11:26)
[2021-02-06] MEDS ORDERED: Depo-Medrol 40 MG/ML IM ONE (11:26)
[2021-02-06] MEDS ORDERED: DUONEB 0.5-3 MG/3 ml Neb IH ONE (12:00)
[2021-02-06] MEDS ORDERED: Ketamine HCl 50 MG/ML ONE (12:12)
[2021-02-06] MEDS ORDERED: DIPRIVAN 200 MG/20 ML IV ONE (12:12)
[2021-02-06 12:14] VITALS: PULSE 88; O2SAT 92
--- NOTE | 2021-02-06 13:30 | XRAY ---
Indication: Right L4-S1 RFA. Intraoperative fluoroscopy provided for 33 seconds. 3 digital spot images submitted for interpretation demonstrates posterior needle tips projecting over the expected right L4-S1 nerve roots. Correlate with intraoperative findings/report.
--- NOTE | 2021-02-06 13:34 | XRAY ---
33 seconds fluoroscopy time in surgery for right L4-S1 RFA.
[2021-02-06] MEDS ORDERED: Lactated Ringers 1,000 ML IV ONE (16:14)
== END 2021-02-06 13:02 | disposition home or self-care (01) ==
LOC: SDC-PAIN 11:25
PROVIDERS: ATTEND Psychiatry & Neurology Pain Medicine
DX: M70.61 Trochanteric bursitis, right hip (principal); E83.119 Hemochromatosis, unspecified; F41.9 Anxiety disorder, unspecified; F32.9 Major depressive disorder, single episode, unspecified; M19.90 Unspecified osteoarthritis, unspecified site; Z79.899 Other long term (current) drug therapy
CPT/HCPCS: 64635; 64636; 72100; 77002; 94640; J1030; J2001; J2704; A9270-GY

== ENCOUNTER 2021-02-20 12:28 | Day surgery (SDC) | payer OTHER ==
[2021-02-20] MEDS ORDERED: Xylocaine 1% Vial 30 ML PF IJ ONE (12:29)
[2021-02-20] MEDS ORDERED: BUPIVACAINE 0.5% VIAL IJ ONE (12:29)
[2021-02-20] MEDS ORDERED: Depo-Medrol 40 MG/ML IM ONE (12:29)
[2021-02-20] MEDS ORDERED: Ketamine HCl 50 MG/ML ONE (14:07)
[2021-02-20] MEDS ORDERED: DIPRIVAN 200 MG/20 ML IV ONE (14:07)
[2021-02-20] MEDS ORDERED: Lactated Ringers 1,000 ML IV ONE (15:15)
--- NOTE | 2021-02-20 16:23 | XRAY ---
Indication: Left L4-S1 RFA. Intraoperative fluoroscopy provided for 39 seconds. 3 digital spot images submitted for interpretation demonstrates posterior needle tips projecting over the expected left L4-S1 nerve roots. Correlate with intraoperative findings/report.
--- NOTE | 2021-02-20 16:28 | XRAY ---
39 seconds of fluoroscopy was used in surgery for a left L4-L5 and L5-S1 RFA.
== END 2021-02-20 14:38 | disposition home or self-care (01) ==
LOC: SDC-PAIN 12:28
PROVIDERS: ATTEND Psychiatry & Neurology Pain Medicine
DX: M47.816 Spondylosis without myelopathy or radiculopathy, lumbar region (principal); Z79.899 Other long term (current) drug therapy; J44.9 Chronic obstructive pulmonary disease, unspecified; F41.8 Other specified anxiety disorders
CPT/HCPCS: 64635; 64636; 72100; 77002; J1030; J2001; J2704

== ENCOUNTER 2021-10-07 06:00 | Day surgery (SDC) | payer MEDICARE ==
[2021-10-07] MEDS ORDERED: Lactated Ringers 1,000 ML IV SCH (06:30)
[2021-10-07] MEDS ORDERED: DIPRIVAN 200 MG/20 ML IV ONE (07:43)
[2021-10-07] MEDS ORDERED: Xylocaine-Mpf 2% 5 Ml Vial ONE (07:56)
--- NOTE | 2021-10-07 13:29 | OP ---
SURGERY DATE/TIME: 10/07/2021 0751 PREOPERATIVE DIAGNOSIS: Screening exam. POSTOPERATIVE DIAGNOSIS: Pancolonic diverticulosis otherwise normal colon. PROCEDURE: Colonoscopy. SURGEON: Dr. Delong. ANESTHESIA: MAC. Medications given by anesthesia department. HISTORY: The patient is a 66-year-old white female presenting now for screening colonoscopy. She was appraised of the risks of the procedure including the risk of perforation, phlebitis, untoward reaction to medication, bleeding and missed lesions. The patient verbalized her understanding and desired to have the procedure performed. DESCRIPTION OF PROCEDURE: The patient was given the medications by the anesthesia department. She had continuous pulse oximetry, ECG monitoring, intermittent blood pressure monitoring during the examination. She was placed in the left lateral decubitus position. A digital rectal examination was performed and revealed normal anal sphincter tone and no masses. The flexible Olympus pediatric colonoscope was used to intubate the rectum. A view of the colon was developed sequentially to the cecum. Upon insertion and withdrawal, including a retroflex view in the rectum was noted sigmoid, transverse and descending colon diverticulosis. No other mucosal lesions being encountered the scope was removed from the patient who tolerated the procedure well and was sent back to OP recovery in good condition. The prep was noted to be good.
== END 2021-10-07 09:00 | disposition home or self-care (01) ==
LOC: SDC 06:00
PROVIDERS: ATTEND Family Medicine
DX: Z12.11 Encounter for screening for malignant neoplasm of colon (principal); K57.90 Diverticulosis of intestine, part unspecified, without perforation or abscess without bleeding
CPT/HCPCS: J2704

== ENCOUNTER 2022-08-20 12:48 | Day surgery (SDC) | payer MEDICARE ==
[2022-08-20] MEDS ORDERED: Sodium Chloride 0.9(Preservative Free) 10 ML IJ ONE (12:49)
[2022-08-20] MEDS ORDERED: Depo-Medrol 40 MG/ML IM ONE (12:49)
[2022-08-20] MEDS ORDERED: DIPRIVAN 200 MG/20 ML IV ONE (14:29)
[2022-08-20] MEDS ORDERED: Lactated Ringers 1,000 ML IV ONE (14:29)
--- NOTE | 2022-08-20 17:15 | XRAY ---
Indication: Right L4-S1 transforaminal DEENA. Intraoperative fluoroscopy provided for 54 seconds. 5 digital spot image submitted for interpretation demonstrates posterior needle tips projecting over the expected right L4 and L5 nerve roots. Small amount of contrast injected for needle tip placement. Correlate with intraoperative findings/report.
--- NOTE | 2022-08-20 17:21 | XRAY ---
54 seconds fluoroscopy time in surgery for right L4-S1 transforaminal DEENA.
== END 2022-08-20 15:05 | disposition home or self-care (01) ==
LOC: SDC-PAIN 12:48
PROVIDERS: ATTEND Psychiatry & Neurology Pain Medicine
DX: M54.16 Radiculopathy, lumbar region (principal); Z79.899 Other long term (current) drug therapy
CPT/HCPCS: 64483; 64484; 72100; 77003; J1030; J2704; Q9966

== ENCOUNTER 2024-10-05 15:36 | Day surgery (SDC) | payer MEDICARE ==
[2024-10-05] MEDS ORDERED: Sodium Chloride 0.9(Preservative Free) 10 ML IJ ONE (15:37)
[2024-10-05] MEDS ORDERED: Depo-Medrol 40 MG/ML IM ONE (15:37)
[2024-10-05] MEDS ORDERED: LIDOCAINE HCL 1% AMPUL 5 ML IJ ONE (15:37)
--- NOTE | 2024-10-05 18:26 | XRAY ---
Indication: Lumbar DEENA. Intraoperative fluoroscopy provided for 25 seconds. 3 digital spot images submitted for interpretation demonstrates posterior needle tip projecting posterior to L4-L5 interspace. Small amount of contrast injected for needle tip placement. Correlate with intraoperative findings/report.
--- NOTE | 2024-10-06 08:49 | XRAY ---
25 seconds of fluoroscopy was used in surgery for a lumbar DEENA.
== END 2024-10-05 17:36 | disposition home or self-care (01) ==
LOC: SDC-PAIN 15:36
PROVIDERS: ATTEND Psychiatry & Neurology Pain Medicine
DX: M54.16 Radiculopathy, lumbar region (principal)
CPT/HCPCS: 72100; 77003

== ENCOUNTER 2024-12-21 14:51 | Day surgery (SDC) | payer MEDICARE ==
[2024-12-21] MEDS ORDERED: LIDOCAINE HCL 1% AMPUL 5 ML IJ ONE (14:52)
[2024-12-21] MEDS ORDERED: Sodium Chloride 0.9(Preservative Free) 10 ML IJ ONE (14:52)
[2024-12-21] MEDS ORDERED: dexAMETHasone sodium phosphate IJ ONE (14:52)
--- NOTE | 2024-12-21 18:56 | XRAY ---
Indication: Right L4-S1 transforaminal DEENA. Intraoperative fluoroscopy provided for 49 seconds. 10 digital spot image submitted for interpretation demonstrates posterior needle tips projecting over right L4 and L5 nerve roots. Small amount of contrast injected for needle tip. Correlate with intraoperative findings/report.
--- NOTE | 2024-12-21 19:12 | XRAY ---
49 seconds of fluoroscopy used in surgery for a right L4-S1 transforaminal DEENA.
== END 2024-12-21 17:05 ==
LOC: SDC-PAIN 14:51
PROVIDERS: ATTEND Psychiatry & Neurology Pain Medicine
DX: M54.16 Radiculopathy, lumbar region (principal)
CPT/HCPCS: 64483; 64484; 72100; 77003; J1100; Q9966

== ENCOUNTER 2025-01-11 15:00 | Day surgery (SDC) | payer MEDICARE ==
[2025-01-11] MEDS ORDERED: Depo-Medrol 40 MG/ML IM ONE (15:01)
[2025-01-11] MEDS ORDERED: LIDOCAINE HCL 2% 100 MG/5 ML IJ ONE (15:01)
[2025-01-11] MEDS ORDERED: Versed 2 MG/2 ML Injection ONE (16:42)
--- NOTE | 2025-01-11 18:19 | XRAY ---
Indication: Bilateral L4-S1 MBB. Intraoperative fluoroscopy provided for 40 to seconds. 2 digital spot image submitted for interpretation demonstrates posterior needle tips projecting over expected left and right L1-S1 nerve roots. Correlate with intraoperative findings/report.
--- NOTE | 2025-01-11 18:19 | XRAY ---
42 seconds of fluoroscopy were used in surgery for a bilateral L4-S1 MBB.
== END 2025-01-11 19:35 | disposition home or self-care (01) ==
LOC: SDC-PAIN 15:00
PROVIDERS: ATTEND Psychiatry & Neurology Pain Medicine
DX: M47.816 Spondylosis without myelopathy or radiculopathy, lumbar region (principal); M75.22 Bicipital tendinitis, left shoulder
CPT/HCPCS: 64493; 64494; 72020; 77002; J2250

== ENCOUNTER 2025-01-25 15:46 | Day surgery (SDC) | payer MEDICARE ==
[2025-01-25] MEDS ORDERED: BUPIVACAINE 0.5% VIAL IJ ONE (15:47)
[2025-01-25] MEDS ORDERED: methylPREDNISolone acetate IM ONE (15:47)
[2025-01-25] MEDS ORDERED: LIDOCAINE HCL 1% 50 MG/5 ML VL IJ ONE (15:47)
--- NOTE | 2025-01-25 21:38 | XRAY ---
Indication: Bilateral L4-S1 MBB. Intraoperative fluoroscopy provided for 53 seconds. 2 digital spot images submitted for interpretation demonstrates posterior needle tips projecting over expected left and right L4-S1 nerve roots. Correlate with intraoperative findings/report.
--- NOTE | 2025-01-25 21:42 | XRAY ---
53 seconds of fluoroscopy were used in surgery for a bilateral L4-S1 MBB.
== END 2025-01-25 17:25 | disposition home or self-care (01) ==
LOC: SDC-PAIN 15:46
PROVIDERS: ATTEND Psychiatry & Neurology Pain Medicine
DX: M47.816 Spondylosis without myelopathy or radiculopathy, lumbar region (principal)
CPT/HCPCS: 64493; 64494; 72020; 77002; J1010

== ENCOUNTER 2025-02-08 14:43 | Day surgery (SDC) | payer MEDICARE ==
[2025-02-08] MEDS ORDERED: Depo-Medrol 40 MG/ML IM ONE (14:44)
[2025-02-08] MEDS ORDERED: BUPIVACAINE 0.5% VIAL IJ ONE (14:44)
[2025-02-08] MEDS ORDERED: LIDOCAINE HCL 1% AMPUL 5 ML IJ ONE (14:44)
[2025-02-08] MEDS ORDERED: Sodium Chloride 0.9% 250 ML 250 ML IV ONE (15:32)
--- NOTE | 2025-02-08 20:22 | XRAY ---
Indication: Left L4-S1 RFA. Intraoperative fluoroscopy provided for 39 seconds. 3 digital spot images submitted for interpretation demonstrates posterior needle tips projecting over expected left L4-S1 nerve roots. Correlate with intraoperative findings/report.
--- NOTE | 2025-02-08 20:27 | XRAY ---
39 seconds of fluoroscopy were used in surgery for a left L4-S1 RFA.
== END 2025-02-08 17:35 | disposition home or self-care (01) ==
LOC: SDC-PAIN 14:43
PROVIDERS: ATTEND Psychiatry & Neurology Pain Medicine
DX: M47.816 Spondylosis without myelopathy or radiculopathy, lumbar region (principal)
CPT/HCPCS: 64635; 64636; 72100; 77002

== ENCOUNTER 2025-02-09 15:05 | Day surgery (SDC) | payer MEDICARE ==
[2025-02-09] MEDS ORDERED: BUPIVACAINE 0.5% VIAL IJ ONE (15:06)
[2025-02-09] MEDS ORDERED: methylPREDNISolone acetate IM ONE (15:06)
[2025-02-09] MEDS ORDERED: LIDOCAINE HCL 1% 50 MG/5 ML VL IJ ONE (15:06)
[2025-02-09] MEDS ORDERED: Sodium Chloride 0.9% 250 ML 250 ML IV ONE (15:27)
--- NOTE | 2025-02-09 20:38 | XRAY ---
Indication: Right L4-S1 RFA. Intraoperative fluoroscopy provided for 31 seconds. 3 digital spot images submitted for interpretation demonstrates posterior needle tips projecting over expected right L4-S1 nerve roots. Correlate with intraoperative findings/report.
--- NOTE | 2025-02-09 20:44 | XRAY ---
31 seconds of fluoroscopy were used in surgery for a right L4-S1 RFA.
== END 2025-02-09 16:59 | disposition home or self-care (01) ==
LOC: SDC-PAIN 15:05
PROVIDERS: ATTEND Psychiatry & Neurology Pain Medicine
DX: M47.816 Spondylosis without myelopathy or radiculopathy, lumbar region (principal)
CPT/HCPCS: 64635; 64636; 72100; 77002; J1010